=== PATIENT | female | born 1970 | race African-American/Black ===

== ENCOUNTER 2016-10-30 13:39 | Emergency (ER) | payer MEDICAID ==
[2016-10-30 16:06] LABS: BASOPHILS 0.5 % (0.0-2.0); EOSINOPHILS 1.8 % (0-7); HEMATOCRIT 38.8 % (36.0-48.0); HEMOGLOBIN 13.1 g/dL (12-16); LYMPHOCYTES 39.1 % (15-50); MCHC 33.8 g/dL (31.0-37.0); MEAN PLATELET VOLUME 11.5 fL (7.4-10.4); MONOCYTES 9.2 % (2-11); NEUTROPHILS 49.4 % (40-80); PLATELET COUNT 245 10x3/uL (130-400); RBC 4.36 10x6/uL (4.00-5.40); RDW 13.2 % (11.5-14.5); WBC 3.8 10x3/uL (4.8-10.8)
== END 2016-10-30 16:49 | disposition home or self-care (01) ==
LOC: D.ER 13:39
PROVIDERS: Emergency Medicine
DX: M54.2 Cervicalgia (principal); I10 Essential (primary) hypertension

== ENCOUNTER 2017-02-19 02:45 | Inpatient (IN) | payer MEDICAID ==
[~2017-02-19] VITALS: Ht 170.2 cm; Wt 95.3 kg
[2017-02-19 03:42] LABS: BASOPHILS 0.4 % (0-2); EOSINOPHILS 2.3 % (0-7); HEMATOCRIT 38.7 % (36.0-48.0); HEMOGLOBIN 13.6 g/dL (12-16); IMMATURE GRANULOCYTES 0.2 % (0-5); MCH 31.1 pg (26.0-34.0); MCHC 35.1 g/dL (31.0-37.0); MCV 88.4 fL (80.0-100.0); MONOCYTES 8.6 % (2-11); NEUTROPHILS 49.5 % (40-80); PLATELET COUNT 218 10x3/uL (130-400); RBC 4.38 10x6/uL (4.00-5.40); RDW 12.6 % (11.5-14.5); WBC 5.1 10x3/uL (4.8-10.8)
[2017-02-19 03:51] LABS: ANION GAP 9.6 mmol/L (8-16); CALCIUM 9.1 mg/dL (8.5-10.1); CARBON DIOXIDE 26.1 mmol/L (21.0-32.0); CREATININE - SERUM 0.9 mg/dL (0.6-1.3); POTASSIUM - SERUM 3.7 mmol/L (3.5-5.1)
[2017-02-19] MEDS ORDERED: PRINIVIL20 MG PO (06:00)
--- NOTE | 2017-02-19 06:00 | NUR ---
PT RECEIVED TO FLOOR VIA WHEELCHAIR AND IS AMBULATORY. RATES ABDOMINAL PAIN 5/10 AT THIS TIME. COMPLETE ASSESSMENT PER FLOW-SHEET. REFUSED NG PLACEMENT. REFUSED SCD'S. INITIATED IV FLUIDS AND HAND CANDLE DIPPER FOR PAIN CONTROL. PT IS NPO. WILL CONTINUE TO MONITOR.
[2017-02-19] MEDS ORDERED: IBUPROFEN400 MG PO (06:03)
[2017-02-19] MEDS ORDERED: EXCEDRIN CAPLET1 TAB PO (06:03)
--- NOTE | 2017-02-19 07:25 | NUR ---
REPORT RECEIVED FROM BLOCK CLEANER NURSE. CALL LIGHT IN REACH.
[2017-02-19 07:41] VITALS: BP 140/86; BMI 32.9
--- NOTE | 2017-02-19 08:27 | NUR ---
ASSESSMENT COMPLETED. DR. IRWIN IN ROOM TO ASSESS PATIENT AND DISCUSS CT RESULTS. PROTONIX SIVP. REFUSES NGT AND SCDs. CALL LIGHT IN REACH. FAMILY IN ROOM. WILL CONTINUE WITH PLAN OF CARE.
[2017-02-19 08:40] VITALS: BP 149/89
--- NOTE | 2017-02-19 08:48 | NUR ---
TO RADIOLOGY VIA WC WITH GASTROGRAFFIN ENEMA.
--- NOTE | 2017-02-19 10:40 | NUR ---
BACK IN ROOM AT THIS TIME. HEALTH AND SAFETY INSPECTOR AND FLUIDS INFUSING. DAUGHTER IN ROOM. CALL LIGHT IN REACH.
--- NOTE | 2017-02-19 11:20 | NUR ---
CONSENTS FOR COLONOSCOPY SIGNED AND WITNESSED.
[2017-02-19 12:19] VITALS: Ht 170.2 cm; Wt 95.3 kg
[2017-02-19 12:48] VITALS: BP 115/55
--- NOTE | 2017-02-19 13:08 | NUR ---
RESTING QUIETLY IN BED. C/O NEEDED FLUIDS. REMINDED DOCTOR ORDER FOR NO FLUIDS AT THIS TIME. GIVEN WET CLOTH TO WIPE OUT MOUTH AND SHE STATED THAT HELPED SOME. DENIES ABDOMINAL PAIN AT THIS TIME.
--- NOTE | 2017-02-19 13:38 | NUR ---
Patient Name: ALLEN MELTON Admission Status: ER Accout number: [id number] Admission Date: 02-19-2017 : 1970 Admission Diagnosis:UNSPECIFIED ABDOMINAL PAIN Attending: CHERRY Current LOS: 1 Anticipated DC Date: Planned Disposition: Home Primary Insurance: [place] PR[employer] OPTIONS [place] Discharge Planning Comments: CM MET WITH PATIENT AND (HERNAN) TO ASSESS DISCHARGE PLANNING NEEDS. PATIENT LIVES INDEPENDENTLY WITH HER WHO WILL BE THE ONE TO DRIVE HER HOME. PATIENT DENIES ANY USE OF HH ANGENCY OR DME & DOES NOT THINK SHE WILL NEED ANY WHEN SHE GOES HOME. CM WILL CONTINUE TO FOLLOW AND ASSIST NEEDED. PCP: KRIS LOZANO ([facility]) [facility] HERNAN () [phone] Traffic Superintendent: Rubi Null * Is the patient Alert and Oriented? Yes 0 * How many steps to enter\exit or inside your home? 0 0 * PCP KRIS LOZANO- [facility] 0 * Pharmacy [facility] 0 * Preadmission Environment Home with Family 0 * ADLs Independent 0 * Equipment None 0 * List name and contact numbers for known caregivers / representatives who currently or will assist patient after discharge: HERNAN () [phone] 0 * Community resources currently utilized None 0 * Additional services required to return to the preadmission environment? No 0 * Can the patient safely return to the preadmission environment? Yes 0 * Has this patient been hospitalized within the prior 30 days at any hospital? No 0 Grand Total: 0
--- NOTE | 2017-02-19 15:29 | NUR ---
PREOP MEDS ADMINISTERED PER ORDER. AT BEDSIDE. CALL LIGHT IN REACH.
--- NOTE | 2017-02-19 16:05 | NUR ---
TO GI LAB VIA BED.
[2017-02-19 16:13] VITALS: BP 150/93
--- NOTE | 2017-02-19 18:21 | NUR ---
STILL IN GI LAB AT THIS TIME.
--- NOTE | 2017-02-19 18:23 | NUR ---
DECOMPRESSION COLONOSCOPY COMPLETED.
--- NOTE | 2017-02-19 19:00 | NUR ---
BACK TO ROOM AT THIS TIME. FLUIDS AND SENIOR SERVICE AIDE BACK INFUSING. FAMILY IN ROOM. CALL LIGHT IN REACH.
--- NOTE | 2017-02-19 22:49 | NUR ---
REC'D PATIENT RESTING IN BED. ALERT AND ORIENTED X4. NO DISTRESS NOTED. DENIED PAIN AT THIS TIME. INSTRUCTED TO CALL IF NEEDED ANYTHING. VERBALIZED UNDERSTANDING. IS AT BEDSIDE. BED LOW, LOCKED, CALL LIGHT IN REACH.
[2017-02-20] VITALS: BP 139/88
--- NOTE | 2017-02-20 02:50 | NUR ---
RESTING,WITHOUT NEEDS.CALL LIGHT IN REACH
[2017-02-20 03:34] VITALS: BP 142/87
[2017-02-20 06:37] LABS: BASOPHILS 0.3 % (0-2); EOSINOPHILS 1.8 % (0-7); HEMATOCRIT 36.4 % (36.0-48.0); HEMOGLOBIN 12.2 g/dL (12-16); LYMPHOCYTES 37.9 % (15-50); MCHC 33.5 g/dL (31.0-37.0); MCV 89.4 fL (80.0-100.0); MONOCYTES 8.2 % (2-11); NEUTROPHILS 51.8 % (40-80); PLATELET COUNT 189 10x3/uL (130-400); RBC 4.07 10x6/uL (4.00-5.40); RDW 12.9 % (11.5-14.5); WBC 3.9 10x3/uL (4.8-10.8)
[2017-02-20 06:45] LABS: INR 1.01 (0.85-1.17); PROTIME 13.2 SECONDS (11.6-15.0)
[2017-02-20 06:46] LABS: APTT 28.2 SECONDS (22.8-39.4)
[2017-02-20 06:48] LABS: CALC OSMOLALITY 276 mosm/kg (275-300); CALCIUM 8.5 mg/dL (8.5-10.1); CARBON DIOXIDE 28.6 mmol/L (21.0-32.0); CHLORIDE - SERUM 106 mmol/L (98-107); CREATININE - SERUM 0.8 mg/dL (0.6-1.3); GLUCOSE 94 mg/dL (74-106); SODIUM 139 mmol/L (136-145); UREA NITROGEN 10 mg/dL (7-18); eGFR NON AFRICAN AMERICAN 82 mL/min (90-120)
--- NOTE | 2017-02-20 07:10 | NUR ---
PT REC'D FROM MICHAEL RASMUSSEN. RESTING IN BED WITH IN BED WITH HER. COMPLAINING OF SEVERE MANCINI. RATING CURRENT PAIN 10/10. ASKING IF SHE HAS TYLENOL ORDERED. EXPLAINED TO PT THAT SHE DID NOT, BUT I WOULD BPAGE THE DOCTOR TO TRY AND GET HER SOME ORDERED. PT STATES SHE UNDERSTANDS. BOWEL SOUNDS ACTIVE X4 QUADS. NO COMPLAINTS OF ABD PAIN. AAOX4. BED LOW, CALL LIGHT IN REACH, DENIES NEEDS. CPOC.
--- NOTE | 2017-02-20 07:39 | NUR ---
DR. IRWIN PAGED DUE TO PT COMPLAINING OF SEVERE HEADACHE AND WANTING HER PHONE COUNSELOR PUMP CHANGED TO SOMETHING INSTEAD OF DILAUDID BECAUSE PT STATES, "I THINK THIS IS WHAT IS MAKING MY HEAD HURT SO BAD."
[2017-02-20 08:11] VITALS: BP 119/79
[2017-02-20] MEDS ORDERED: MIRALAX17 GM PO (08:30)
--- NOTE | 2017-02-20 10:50 | NUR ---
DISCHARGE INSTRUCTIONS DISCUSSED AT THIS TIME. NO QUESTIONS OR CONCERNS VOICED. PIV TO R HAND DC'D WITH CATHETER INTACT. ESCORTED OUT VIA WC.
== END 2017-02-20 10:59 | disposition home or self-care (01) | DRG 346 ==
LOC: D.ER 02:45 → D.MS 05:30
PROVIDERS: Family Medicine; Internal Medicine Gastroenterology; ADMIT Surgery
PROC: 0D9E8ZZ Drainage of Large Intestine, Via Natural or Artificial Opening Endoscopic (ICD-10-PCS; principal; 2017-02-19 16:30)
DX: K59.39 Other megacolon (principal); K59.00 Constipation, unspecified

== ENCOUNTER 2017-03-29 17:03 | Emergency (ER) | payer MEDICAID ==
[2017-02-19 12:19] VITALS: BMI 32.9
[~2017-03-29 17:03] MED LIST: EXCEDRIN CAPLET1 TAB PO; IBUPROFEN400 MG PO; MIRALAX17 GM PO; PRINIVIL20 MG PO
[2017-03-29 18:31] LABS: COLOR DK YELLOW (YELLOW)
[2017-03-29 18:32] LABS: APPEARANCE CLOUDY (CLEAR); BILIRUBIN NEGATIVE (NEGATIVE); GLUCOSE NEGATIVE (NEGATIVE); KETONE NEGATIVE (NEGATIVE); LEUKOCYTE ESTERASE 1+ (NEGATIVE); NITRITE NEGATIVE (NEGATIVE); PROTEIN TRACE mg/dL (NEGATIVE); UROBILINOGEN NORMAL (NORMAL)
[2017-03-29 18:35] LABS: EPITHELIAL CELLS 0-5 /hpf (0-5); WHITE CELLS - URINE >50 /hpf (0-5)
[2017-03-29 18:36] LABS: BACTERIA FEW /hpf (NONE SEEN)
== END 2017-03-29 19:28 | disposition home or self-care (01) ==
LOC: D.ER 17:03
PROVIDERS: Emergency Medicine
DX: N39.0 Urinary tract infection, site not specified (principal); I10 Essential (primary) hypertension

== ENCOUNTER → 2017-04-12 08:18 | Outpatient (CLI) | payer MEDICAID ==
[2017-02-19 12:19] VITALS: BMI 32.9
== END | disposition home or self-care (01) ==
LOC: D.RAD 08:18
DX: Z87.19 Personal history of other diseases of the digestive system (principal); R10.9 Unspecified abdominal pain; K59.00 Constipation, unspecified; Z12.11 Encounter for screening for malignant neoplasm of colon

== ENCOUNTER 2017-06-09 16:30 | Inpatient (IN) | payer MEDICAID ==
[~2017-06-09] VITALS: Ht 170.2 cm; Wt 106.4 kg
[2017-06-09 17:28] LABS: BASOPHILS 0.2 % (0-2); HEMOGLOBIN 12.9 g/dL (12-16); IMMATURE GRANULOCYTES 0.1 % (0-5); LYMPHOCYTES 16.9 % (15-50); MCH 30.6 pg (26.0-34.0); MCHC 33.9 g/dL (31.0-37.0); MEAN PLATELET VOLUME 11.2 fL (7.4-10.4); MONOCYTES 8.7 % (2-11); NEUTROPHILS 72.1 % (40-80); RBC 4.22 10x6/uL (4.00-5.40); RDW 13.3 % (11.5-14.5); WBC 8.6 10x3/uL (4.8-10.8)
[2017-06-09 17:36] LABS: PLATELET COUNT 280 10x3/uL (130-400)
[2017-06-09 17:53] LABS: ALBUMIN 3.3 g/dL (3.4-5.0); ANION GAP 15.3 mmol/L (8-16); BILIRUBIN - TOTAL 0.31 mg/dL (0.2-1.3); CARBON DIOXIDE 22.6 mmol/L (21.0-32.0); POTASSIUM - SERUM 3.9 mmol/L (3.5-5.1); PROTEIN - SERUM 7.7 g/dL (6.4-8.2)
--- NOTE | 2017-06-09 23:17 | NUR ---
REC'D TO ROOM 2216 FROM ER DEPT PER STRETCHER A 47 Y/O W/FE PER SERVICES DR. TRAMMELL WITH DX VOLVULUS. RECTAL TUBE IN PLACE CONNECTED TO MAJANO BAG. AND DRAINING PINK COLORED FLUID. IV PATENT LEFT HAND SALINE LOCKED. FAMILY MEMBERS AT BEDSIDE.
[2017-06-09 23:44] VITALS: BP 104/59; BMI 32.9
--- NOTE | 2017-06-10 00:42 | NUR ---
IV FLUIDS OF NS HUNG PER ORDERS AT A RATE OF 100CC'S/HR. CABLE ENGINEER OUTSIDE PLANT OF DILAUDID STARTED WITH ETTINGS AT 0.2MG Q10MIN NO L/O PER MD'S ORDERS. INSTRUCTED PT AND HER SPOUSE OF OPERATION OF CABLE ENGINEER OUTSIDE PLANT MACHINE.
--- NOTE | 2017-06-10 01:30 | NUR ---
ASSISTED PATIENT TO TURN TO RT SIDE. SR UP X2 CALL LIGHT WITHIN REACH.
[2017-06-10 04:00] VITALS: BP 136/60
--- NOTE | 2017-06-10 04:06 | NUR ---
RESTING QUIETLY DENIES NEEDS SPOUSE AT BEDSIDE.
[2017-06-10 05:10] LABS: BASOPHILS 0.1 % (0-2); EOSINOPHILS 0.8 % (0-7); HEMATOCRIT 34.9 % (36.0-48.0); HEMOGLOBIN 11.5 g/dL (12-16); IMMATURE GRANULOCYTES 0.1 % (0-5); LYMPHOCYTES 12.7 % (15-50); MCH 30.3 pg (26.0-34.0); MCV 91.8 fL (80.0-100.0); MEAN PLATELET VOLUME 10.9 fL (7.4-10.4); MONOCYTES 7.5 % (2-11); NEUTROPHILS 78.8 % (40-80); PLATELET COUNT 257 10x3/uL (130-400); RDW 13.6 % (11.5-14.5); WBC 8.6 10x3/uL (4.8-10.8)
[2017-06-10 05:35] LABS: ALBUMIN 2.7 g/dL (3.4-5.0); ANION GAP 10.7 mmol/L (8-16); BILIRUBIN - TOTAL 0.3 mg/dL (0.2-1.3); CALCIUM 8.4 mg/dL (8.5-10.1); CARBON DIOXIDE 25.2 mmol/L (21.0-32.0); CREATININE - SERUM 0.9 mg/dL (0.6-1.3); MAGNESIUM - SERUM 1.9 mg/dL (1.8-2.4); PHOSPHOROUS 3.2 mg/dL (2.5-4.9); POTASSIUM - SERUM 3.9 mmol/L (3.5-5.1); PROTEIN - SERUM 6.6 g/dL (6.4-8.2)
--- NOTE | 2017-06-10 07:30 | NUR ---
ASSESSMENT PER FLOW SHEET.PT WITHOUT DISTRESS.STATES PAIN 9/10 IN RECTAL AREA.TUBE COMING FROM RECTUM HAS SMALL AMOUNT OF LIGHT STRAW PINK TINTED DRAINAGE IN COLLECTION BAG.INSTRUCTED OFFICE INSPECTOR USE FOR PAIN CONTROL.PT STATES SHE HS ONLY USED IT A FEW TIMES.FAMILY AT BEDSIDE.CALL LIGHT IN REACH
[2017-06-10 08:13] VITALS: BP 109/67
[2017-06-10 11:48] VITALS: BP 126/78
--- NOTE | 2017-06-10 14:49 | NUR ---
SLEEP[ING ON LEFT SIDE,WITHOUT DISTRESS.
[2017-06-10 16:56] VITALS: BP 130/74
--- NOTE | 2017-06-10 18:12 | NUR ---
HAS BEEN UP TO BATHROOM.PAIN BETTER CONTROLLED WITH MEDS ORDERED PER SEP. NO OUTPUT FROM TUBE IN RECTUM. REMAINS WITHOUT NAUSEA.CONT PLAN OF CARE
[2017-06-10 20:00] VITALS: BP 112/84
[2017-06-11] VITALS: BP 123/62
[2017-06-11 04:00] VITALS: BP 141/103
[2017-06-11 07:54] VITALS: BP 123/87
[2017-06-11 12:00] VITALS: BP 120/90
[2017-06-11 12:11] VITALS: BMI 32.9
[2017-06-11 15:27] VITALS: BP 120/85
[2017-06-11 20:00] VITALS: BP 133/74
--- NOTE | 2017-06-11 20:30 | NUR ---
PT C/O LEFT HAND IV TENDER AND BURNING. REMOVED IV CATHETER INTACT. RESITED TO RIGHT FOREARM 22 G 1ST ATTEMPT. GAVE DEMEROL FOR PAIN. ASSESSMENT COMPELTE PER FLOW-SHEET. NO OTHER NEEDS. WILL CONTINUE TO MONITOR.
[2017-06-12] VITALS: BP 145/85
[2017-06-12 04:00] VITALS: BP 139/92
--- NOTE | 2017-06-12 08:00 | NUR ---
ASSESSMENT PER FLOW SHEET.PT WITHOUT DISTRESS.DENIES NEEDS AT PRESENT.CALL LIGHT IN REACH
[2017-06-12 08:50] VITALS: BP 141/95
[2017-06-12 12:55] VITALS: BP 130/86
--- NOTE | 2017-06-12 15:11 | NUR ---
HAS BEEN UP TO BATHROOM AND HAD SOME LOOSE STOOLS.STOOL LEAKING AROUND TUBE GOING INTO RECTUM.PT CLEANED AND TUBED FLUSHED PER MAMIE SOUSA RN PER .MONITOR FOR NEEDS
[2017-06-12 16:50] VITALS: BP 163/103
--- NOTE | 2017-06-12 16:52 | NUR ---
PAGE TO DR. ALVARO AMATO. BP 163/102
--- NOTE | 2017-06-12 18:19 | NUR ---
REMAINS WITHOUT DISTRESS.DENIES NEEDS AT PRESENT.CALL LIGHT IN REACH
[2017-06-12 20:00] VITALS: BP 148/101
[2017-06-13] VITALS: BP 146/84
[2017-06-13 04:00] VITALS: BP 130/83
--- NOTE | 2017-06-13 08:00 | NUR ---
ASSESSMENT PER FLOW SHEET.PT WITHOUT DISTRESS.CALL LIGHT IN REACH
[2017-06-13 08:42] VITALS: BP 155/81
--- NOTE | 2017-06-13 15:17 | NUR ---
LYING IN BED ON LEFT SIDE.DENIES NEEDS AT PRESENT.MONITOR
--- NOTE | 2017-06-13 17:13 | NUR ---
DENIES PAIN AT PRESENT,WITHOUT NAUSEA.WITHOUT CHANGE FROM INITIAL SHIFT ASSESSMENT.CONT PLAN OF CARE
--- NOTE | 2017-06-13 19:45 | NUR ---
PT RESTLESS, PULLING COVERS AND GOWN. CONFUSED AND DISORIENTED, HEARING AND SEEING PEOPLE AND THINGS THAT ARE NOT THERE. PT APPEARS TO BE TIRING. INCONTINENT OF URINE. CHANGED BED LINEN AND GOWN WITH SOME RESISTANCE. ASSESSED PAIN. PT SAID YES. ASKED PT IS SHE COULD TAKE A PAIN PILL. PT STATED "NO, IT'S NOT THAT BAD YET." FAMILY WENT HOME FOR THE NIGHT. WILL CLOSELY MONITOR. BED ALARMS ON. CALL LIGHT IN REACH.
[2017-06-13 20:00] VITALS: BP 166/95
[2017-06-14] VITALS: BP 159/90
[2017-06-14 04:00] VITALS: BP 148/90
--- NOTE | 2017-06-14 07:04 | NUR ---
REPORT RECEIVED FROM FLEXOGRAPHIC PRESS SET UP OPERATOR NURSE. CALL LIGHT IN REACH.
[2017-06-14 08:29] VITALS: BP 154/115
--- NOTE | 2017-06-14 09:12 | NUR ---
Patient Name: ALLEN CORTES Admission Status: ER Accout number: [id number] Admission Date: 06-09-2017 : 1970 Admission Diagnosis:VOLVULUS Attending: HERNAN TRAMMELL Current LOS: 5 Anticipated DC Date: Planned Disposition: Home Primary Insurance: [place] Discharge Planning Comments: CM met with patient to assess discharge planning needs. Patient lives independently with her , where she plans to return. Her mother Ariella Davey will be the one to drive her home at discharge. Patient has 8 steps to enter in her home. She does not have any DME or HH services at this time. CM will continue to follow and assist with discharge planning needs. PCP: Leela Galan ([facility]) [facility] Hernan Cortes () [phone] Manager Transfer: Rubi Null * Is the patient Alert and Oriented? Yes 0 * How many steps to enter\exit or inside your home? 8 0 * PCP Leela Galan 0 * Pharmacy [facility] 0 * Preadmission Environment Home with Family 0 * ADLs Independent 0 * Equipment None 0 * List name and contact numbers for known caregivers / representatives who currently or will assist patient after discharge: Hernan Cortes () [phone] 0 * Community resources currently utilized None 0 * Additional services required to return to the preadmission environment? No 0 * Can the patient safely return to the preadmission environment? Yes 0 * Has this patient been hospitalized within the prior 30 days at any hospital? No 0 Grand Total: 0
--- NOTE | 2017-06-14 09:55 | NUR ---
ASSESSMENT COMPLETED. STATES A HEADACHE OF 10. OFFERED DEMEROL OR NORCO BUT PATIENT REFUSED BOTH AT THIS TIME. TYLENOL IV ORDERED AND ADMINISTERED. DAUGHTER IN ROOM. CALL LIGHT IN REACH. WILL CONTINUE WITH PLAN OF CARE.
--- NOTE | 2017-06-14 10:49 | NUR ---
HAS STARTED CRYING. STATES TYLENOL DID NOT HELP PAIN AT ALL. NOW WANTS TO TRY DEMEROL SO ADMINISTERED IVP. DAUGHTER IN ROOM. CALL LIGHT IN REACH.
--- NOTE | 2017-06-14 11:06 | NUR ---
SCDs APPLIED TO BLE PER FAMILY SOCIOLOGIST.
--- NOTE | 2017-06-14 11:46 | NUR ---
UP TO BR PER SELF. DENIES NEEDS. CONTINUES TO C/O HEADACHE. GIVEN WARM PACKS FOR NECK. WILL MONITOR.
[2017-06-14 12:05] VITALS: BP 150/93
--- NOTE | 2017-06-14 13:02 | NUR ---
PREOP MEDS ADMINISTERED WITH SIP OF WATER. DAUGHTER AT BEDSIDE. CALL LIGHT IN REACH.
--- NOTE | 2017-06-14 13:26 | NUR ---
NUTRITION F/U PT NPO FOR SURGERY. WILL MONITOR DIET ADVANCEMENT, PO INTAKE. RD FOLLOWING
--- NOTE | 2017-06-14 15:50 | NUR ---
DR. TRAMMELL IN ROOM TO SPEAK WITH PATIENT.
[2017-06-14 16:14] VITALS: BP 154/91
[2017-06-14 16:16] LABS: BASOPHILS 0.3 % (0-2); EOSINOPHILS 3.1 % (0-7); HEMATOCRIT 37.6 % (36.0-48.0); HEMOGLOBIN 12.9 g/dL (12-16); IMMATURE GRANULOCYTES 0.3 % (0-5); LYMPHOCYTES 28.5 % (15-50); MCH 30.5 pg (26.0-34.0); MCHC 34.3 g/dL (31.0-37.0); MCV 88.9 fL (80.0-100.0); MEAN PLATELET VOLUME 10.2 fL (7.4-10.4); MONOCYTES 9.5 % (2-11); NEUTROPHILS 58.3 % (40-80); RBC 4.23 10x6/uL (4.00-5.40); RDW 12.8 % (11.5-14.5); WBC 3.9 10x3/uL (4.8-10.8)
--- NOTE | 2017-06-14 16:21 | NUR ---
HS DOSE OF LISINOPRIL 20 MG PO. IV TYLENOL ADMINISTERED. CALL LIGHT IN REACH.
[2017-06-14 16:30] LABS: PLATELET COUNT 326 10x3/uL (130-400)
[2017-06-14 16:47] LABS: ALBUMIN 3.1 g/dL (3.4-5.0); ALKALINE PHOSPHATASE 55 U/L (46-116); ALT (SGPT) 30 U/L (10-68); BILIRUBIN - TOTAL 0.21 mg/dL (0.2-1.3); CALC OSMOLALITY 272 mosm/kg (275-300); CALCIUM 9.2 mg/dL (8.5-10.1); CHLORIDE - SERUM 102 mmol/L (98-107); CREATININE - SERUM 0.8 mg/dL (0.6-1.3); GLUCOSE 92 mg/dL (74-106); POTASSIUM - SERUM 3.7 mmol/L (3.5-5.1); PROTEIN - SERUM 6.9 g/dL (6.4-8.2); SODIUM 138 mmol/L (136-145); UREA NITROGEN 3 mg/dL (7-18); eGFR NON AFRICAN AMERICAN 82 mL/min (90-120)
--- NOTE | 2017-06-14 18:01 | NUR ---
NO CHANGES IN INITIAL ASSESSMENT. CALL LIGHT IN REACH. WANTS SCDs OFF AT THIS TIME. WILL CONTINUE WITH PLAN OF CARE.
--- NOTE | 2017-06-14 20:00 | NUR ---
ASSESSMENT PER FLOWSHEET. NPO FOR SURGERY FAMILY MEMBERS AT BEDSIDE. IV PATENT RT WRIST OF NS AT 100CC'S/HR. SITE CLEAR. RECTAL TUBE CONNECTED TO MAJANO BAG IN PLACE. UP AD PAOLO TO BATHROOM VOIDS WELL.
--- NOTE | 2017-06-14 20:30 | NUR ---
TO SURGERY PER BED SR UP X2 FAMILY AT BEDSIDE.
--- NOTE | 2017-06-14 21:55 | NUR ---
2104 EPIDURAL PLACED BY ANESTHESIA, JERAMIE PABLO. AFTER BEING PUT TO SLEEP, DR TRAMMELL REMOVE RECTAL TUBE THAT WAS IN PLACE, [place].
--- NOTE | 2017-06-14 23:34 | NUR ---
RE'D TO ROOM 2216 FROM PACU POST OP OPEN HALS COLECTOMY AND APPENDECTOMY. VITAL SIGNS MONITORED. PT HAS EPIDURAL OF FENTYL INFUSING AT 8CC'S/HR CONTINUOUSLY. MAJANO CATHETER IN PLACE AND DRAINING YELLOW URINE. O2 ON 3L/M PER NC. O2 SAT=98%.HOB UP 30 DEGREES.IV PATENT RT WRIST OF NS AT 100CC'S/HR. DRESSING TO LOWER TRANSVERSE ABDOMEN C/D/I.
[2017-06-14 23:44] VITALS: BP 177/75
[2017-06-15] VITALS (15 sets, daily range): BP systolic 84–137; BP diastolic 43–86
--- NOTE | 2017-06-15 00:30 | NUR ---
CONTINUE TO MONITOR VS AND O2 SATS. RESTING QUIETLY DENIES NEEDS.
--- NOTE | 2017-06-15 01:28 | NUR ---
EYES CLOSED RESPONDS EASILY TO VERBAL COMMAND.
--- NOTE | 2017-06-15 07:50 | NUR ---
REPORT RECEIVED FROM KIP TREVIÑO.
--- NOTE | 2017-06-15 08:28 | NUR ---
ASSESSMENT COMPLETED. NPO. REFUSES SCDs. CALL LIGHT IN REACH. MOTHER IN ROOM. WILL CONTINUE WITH PLAN OF CARE.
--- NOTE | 2017-06-15 10:59 | NUR ---
PEPCID WITH SIP OF WATER. ICE CHIPS GIVEN TO PATIENT. FAMILY IN ROOM. CALL LIGHT IN REACH.
--- NOTE | 2017-06-15 11:15 | NUR ---
PATIENT IN BED WITH IV INTACT. NO COMPLAINTS OR SIGNS OF DISTRESS. CALL LIGHT WITHIN REACH.
--- NOTE | 2017-06-15 12:34 | NUR ---
REFUSES TO TURN IN BED.
--- NOTE | 2017-06-15 13:15 | NUR ---
INCONTINENT OF LARGE STOOL. PARTIAL BED BATH GIVEN AND LINENS CHANGED. STILL REFUSES TO TURN. DAUGHTER IN ROOM. CALL LIGHT IN REACH.
--- NOTE | 2017-06-15 14:27 | NUR ---
FLUID IN EPIDURAL IS GETTING LOW. DR. ZACHARY JUDD.
--- NOTE | 2017-06-15 14:27 | NUR ---
EPIDURAL FLUID IS LOW. DR. SHARMA PAGED TO NOTIFY HIM.
--- NOTE | 2017-06-15 15:43 | OP ---
PATIENT NAME: ALLEN MELTON MEDICAL RECORD: [id number] :[birth year] LOCATION:[facility] ADMISSION DATE:06/09/17 SURGEON: HERNAN TRAMMELL MD DATE OF OPERATION: 06/14/2017 PREOPERATIVE DIAGNOSIS: Recurrent volvulus of the sigmoid colon. POSTOPERATIVE DIAGNOSIS: Recurrent volvulus of the sigmoid colon. PROCEDURES: 1. Open sigmoid colectomy. 2. Incidental appendectomy. SURGEON: Hernan Trammell MD FISHER LOBSTER: None. BLOOD LOSS: Minimal. ANESTHESIA: General. COMPLICATIONS: None. The indication for the appendectomy was to avoid diagnostic confusion in the future should the patient have a persistence or recurrence of abdominal pain. The risks, possible complications and alternatives to the procedure were explained to the patient. She elected to proceed. OPERATIVE COURSE: The patient was conveyed to the operating room electively on 06/14/2017. General anesthesia was induced by the anesthesia staff. The abdomen and genitals were sterilely prepped and draped. A transverse Pfannenstiel type of incision was accomplished 3 cm cephalad to the pubic symphysis in a pannicular crease. Sharp dissection was carried down through skin and subcutaneous tissue as well as Bernadine fascia. The anterior fascia was incised along the direction of its fibers. Subfascial flaps were created in cephalad and caudad directions. The peritoneal cavity was entered sharply. An Jose Luis retractor was placed. I mobilized the cecum. A window was created in the mesoappendix. I stapled across the tip of the appendix with a MAGAN-75 stapler. I then took down the mesoappendix utilizing the EnSeal device. The appendix was sent as a single specimen. I then mobilized the sigmoid colon, which was very redundant. I divided the rectosigmoid junction by creating a window in the mesentery. I stapled across here with a MAGAN-75 stapler. I chose the proximal extent of my resection to be the junction of descending and sigmoid colons. I stapled across here with a MAGAN-75 stapler. The interposed mesentery was taken down with the EnSeal device. The specimen was sent to pathology. The descending colon and rectum were placed in apposition side by side. A small colotomy and small proctotomy were performed. Anvils of the MAGAN-75 stapler were advanced and fired. The resulting colorectal defect was closed with a single OPERATIVE REPORT [id number] ALLEN MELTON firing of the TA 60 stapler. There was no bleeding. I ran a portion of the small bowel and there appeared to have been no evidence of small bowel injury. I irrigated and aspirated. Still no evidence of bleeding. The rectus muscles were approximated in the midline with multiple interrupted horizontal mattress #1 Vicryls. The anterior fascia was closed with running #1 Vicryls. Bernadine's fascia was approximated with interrupted 3-0 Vicryls. The subdermis was approximated with interrupted 3-0 Vicryls. The skin was approximated with a running intracuticular 4-0 Vicryl. A sterile dressing was applied. The patient was then extubated and conveyed to the post-anesthesia care unit where she was in stable condition. TRANSINT:[id number] Voice Confirmation ID: [id number] DOCUMENT ID: [id number] HERNAN TRAMMELL MD at 1543 CC: CONNOR YOUSIF MD [id number] DICTATION DATE: 06/15/17 1018 CORK INSULATION SETTER: 06/15/17 1340 ADM IN [facility] [address] [place] [address]
--- NOTE | 2017-06-15 15:43 | HP ---
PATIENT: ALLEN MELTON MEDICAL RECORD: [id number] ACCOUNT: [id number] LOCATION:D[facility] : 74 ADMISSION DATE: 06/09/17 HISTORY AND PHYSICAL EXAMINATION This is a history and physical addendum. CHIEF COMPLAINT: Pain. HISTORY OF PRESENT ILLNESS: The patient presents to the Emergency Room with what appears to be a sigmoid volvulus. The patient underwent a CT scan. I personally reviewed the CT images. I have personally reviewed the CT report. It discussed some twisting of the mesentery. I think this is due to a volvulus. I have asked that the interventional radiologist come in and see if we can detorse the volvulus. If I had to take the patient to the operating room and resect the sigmoid colon, this would very likely result in a colostomy. My preference would be to detorse the sigmoid colon to bowel prep the patient over the weekend and then perform a sigmoid colectomy hopefully laparoscopically on Wednesday. Palpation aggravates. Nothing alleviates. Symptoms are mild. I first saw her and examined her in the CT scanner. The entire physical examination was performed in the presence of a female nurse. Palpation aggravates. Nothing alleviates. The symptoms are mild in intensity. They are not worsening. There is no peritonitis locally or diffuse peritonitis. For the typed portion of the history and physical, please see the chart. This would include past medical and surgical history, allergies, current medications, social history as well as family history. These are recurrent episodes. The patient had a volvulus in the past which has been detorsed through the use of a Gastrografin enema. REVIEW OF SYSTEMS: No ear pain, no blurred vision, no chest pain, no shortness of breath. No flank pain, no altered mental status, no polyuria, no anemia. PHYSICAL EXAMINATION: GENERAL: The patient does appear acutely ill, does not appear chronically ill. VITAL SIGNS: Reviewed. The entire physical examination was performed with the presence of a female nurse. EARS: External ears appear normal. EYES: Extraocular movements are intact. NECK: Trachea is midline. CHEST: No intercostal retractions. PULMONARY: Nonlabored, no stridor. ABDOMEN: Tenderness in the left upper quadrant. PSYCHIATRIC: Normal affect. NEUROLOGIC: Nonfocal, no lethargy. The patient answers questions appropriately, moves all extremities well. BACK: No thoracic kyphosis. LYMPHATICS: No lymphangitic streaking of the exposed extremities. IMPRESSION: Probable volvulus. PLAN: As described above. HISTORY AND PHYSICAL [id number] PRAVIN MELTONL TRANSINT:[id number] Voice Confirmation ID: [id number] DOCUMENT ID: [id number] HERNAN TRAMMELL MD at 1543 CC: CEASAR EAGLE MD, KRIS WASHBURN and CORNELIA GREENE MD [id number] DICTATION DATE: 06/09/171958 PAN WASHER: 06/09/172130 ADM IN [facility] [address] [place] [address]
--- NOTE | 2017-06-15 15:43 | OP ---
PATIENT NAME: ALLEN MELTON MEDICAL RECORD: [id number] :74 LOCATION:D[facility] ADMISSION DATE:06/09/17 SURGEON: GOKUL TRAMMELL MD DATE OF OPERATION: 06/09/2017 PREOPERATIVE DIAGNOSIS: Sigmoid volvulus. POSTOPERATIVE DIAGNOSES: Sigmoid volvulus. PROCEDURE: Rigid sigmoidoscopy with decompression of sigmoid volvulus. SURGEON: Gokul Trammell MD CINDER BLOCK MASON: None. BLOOD LOSS: Minimal. ANESTHESIA: IV analgesia as well as an IV benzodiazepine. The patient failed a Gastrografin enema to try to detorse the sigmoid volvulus. The patient was then conveyed back to the Emergency Room. The risks, possible complications and alternatives of procedure were explained to the patient. She elects to proceed. OPERATIVE COURSE: The patient was placed in the Thomas position. IV analgesia as well as IV benzodiazepine were given. I lubricated the anus with K-Y jelly and with viscous lidocaine. I advanced a rigid sigmoidoscope. I advanced into the "bird's beak" where the sigmoid colon was twisted. I then advanced a 28-[place] African chest tube through this twisted area. There was a prompt flow of 1.8 liters of what appeared to be Gastrografin as well as some fecal material. I then sutured the chest tube in place to the surrounding anoderm after anesthetizing it with the local anesthetic. I sutured the chest tube to the anoderm with a 2-0 silk. This hopefully will keep the bowel untorsed, so that we can bowel prep the patient over the weekend and hopefully perform a sigmoid colectomy on Wednesday as this is at least the patient's fourth episode of sigmoid volvulus. I think it is time to go ahead and remove the sigmoid colon which continues to develop a volvulus. TRANSINT:[id number] Voice Confirmation ID: [id number] DOCUMENT ID: [id number] GOKUL TRAMMELL MD at 1543 CC: [id number] DICTATION DATE: 06/10/17 1018 RUG DYER: 06/10/17 1045 ADM IN [facility] [id number] [place] [address]
--- NOTE | 2017-06-15 15:51 | NUR ---
EPIDURAL IS NOW EMPTY. SPOKE WITH DR. SHARMA.
--- NOTE | 2017-06-15 15:54 | NUR ---
DR. SHARMA IN ROOM TO REPLACE EPIDURAL FLUID. TYLENOL IV PER ORDER. STILL REFUSING TO TURN.
--- NOTE | 2017-06-15 16:15 | NUR ---
BP 82/48 AND ONLY 200 CC OUT OF MAJANO CATHETER. DR. VALERI JUDD.
--- NOTE | 2017-06-15 17:51 | NUR ---
SPOKE WITH DR. SHARMA ABOUT BP AND MAJANO OUTPUT. NEW ORDER FOR 500 CC NS IV BOLUS.
--- NOTE | 2017-06-15 18:18 | NUR ---
NO CHANGES IN INITIAL ASSESSMENT. REFUSES SCDs. CALL LIGHT IN REACH. WILL CONTINUE WITH PLAN OF CARE.
--- NOTE | 2017-06-15 20:00 | NUR ---
ASSESSMENT PER FLOWSHEET. IV PATENT RT ARM OF NS AT 100CC'S/HR SITE CLEAR EPIDURAL IN PLACE WITH GOOD PAIN CONTROL MONITORING O2 SATS. RUNNING 98-100% ON 2L/M PER NC. MAJANO TO BEDSIDE DRAINAGE WITH YELLOW URINE. DRESSING TO LOWER ABDOMINAL AREA C/D/I. SPOUSE IN ROOM
--- NOTE | 2017-06-15 21:00 | NUR ---
MEDS GIVEN PER SEP. HELD B/P MED =.
--- NOTE | 2017-06-16 | NUR ---
EYES CLOSED RESPIRATIONS WITH EASE AND UNLABORED.
--- NOTE | 2017-06-16 02:00 | NUR ---
RESTING QUIETLY DENIES NEEDS.
--- NOTE | 2017-06-16 03:30 | NUR ---
C/O NAUSEA ZOFRAN 4MG IVP GIVEN FOR RELIEF.
--- NOTE | 2017-06-16 06:00 | NUR ---
EYES CLOSED RESPIRATIONS WITH EASE AND UNLABORED.
--- NOTE | 2017-06-16 08:00 | NUR ---
ASSESSMENT PER FLOW SHEET.PT WITHOUT DISTRESS.SATS 99% ON 2 LITERS OF 02 PER NASAL CANULA. EPIDURAL DRESSING CDI.PT STATES PAIN CONTROLLED.TRANSVERSE INCISION TO LOWER ABD WITH DRESSING CDI. POSITIONED ON RIGHT SIDE.SCDS IN PLACE.MAJANO HAS YELLOW URINE IN COLLECTION BAG.CALL LIGHT IN REACH
[2017-06-16 08:44] VITALS: BP 95/59
--- NOTE | 2017-06-16 12:00 | NUR ---
STILL HAVING NAUSEA. STATES HAVING SOME PAIN.INSTRUCTED EPIDURAL BUTTON FOR PAIN CONTROLL.FAMILY AT BEDSIDE
[2017-06-16 12:09] VITALS: BP 102/56
--- NOTE | 2017-06-16 13:52 | NUR ---
STILL HAVING NAUSEA,MEDS ORDERED PER SEP.
[2017-06-16 16:16] VITALS: BP 110/58
--- NOTE | 2017-06-16 20:00 | NUR ---
ASSESSMENT SPER FLOWSHEET. INCISION LOWER ABDOMINAL AREA DRESSING C/D/I. IV PATENT RT WRIST OF NS AT 100CC'S/HR. SITE CLEAR. LITHOGRAPHED PLATE INSPECTOR OF DILAUDID IN USE WITH SETTINGS AT 0.2MG Q10 MD WITH 4MG Q4H L/O. MAJANO TO BEDSIDE DRAINAGE WITH YELLOW URINE. BS +.
--- NOTE | 2017-06-16 21:00 | NUR ---
MEDS GIVEN PER SEP. HELD B/P MED DUE TO LOW BLOOD PRESSURE OF 101/SYSTOLIC. SPOUSE IN ROOM AT BEDSIDE.
[2017-06-16 21:51] VITALS: BP 101/71
[2017-06-16 23:45] VITALS: BP 111/71
--- NOTE | 2017-06-17 | NUR ---
EYES CLOSED RESPIRATIONS WITH EASE AND UNLABORED.
--- NOTE | 2017-06-17 00:49 | NUR ---
AWAKE ALERT VISITING WITH FAMILY MEMBERS.
--- NOTE | 2017-06-17 03:00 | NUR ---
EYES CLOSED RESPIRATIONS WITH EASE AND UNLABORED.
[2017-06-17 04:00] VITALS: BP 128/70
--- NOTE | 2017-06-17 06:00 | NUR ---
NO CHANGES IN ASSESSMENT.
--- NOTE | 2017-06-17 08:00 | NUR ---
ASSESSMENT PER FLOW SHEET.PT WITHOUT DISTRESS.TRANSVERSE ABDOMINAL INCISION DRESSING CLEAN AND DRY.SHE IS WITHOUT EMESIS THIS AM. SHE STATES HER PAIN GOT BAD LAST NIGHT WHEN SHE FELL ASLEEP AND WASNT PUSHING LITIGATION PARTNER BUTTON.LITIGATION PARTNER USI INSTRUCTED.IS TEACHING WITH PT DEMONSTRATION.MONITOR FOR NEEDS.
[2017-06-17 08:37] VITALS: BP 134/68
[2017-06-17 12:56] VITALS: BP 109/56
--- NOTE | 2017-06-17 13:34 | NUR ---
NUTRITION F/U PT ON REG DIET, NOW BACK TO NPO. MAY BENEFIT FROM PROCALAMINE AND INTRALIPIDS IF UNABLE TO RESUME PO IN [address] FOLLOWING
--- NOTE | 2017-06-17 13:40 | NUR ---
PT HAS BEEN UP AND AMBULATED IN [place] WITH PT.PAIN CONTROLLED WITH HOSPITAL STAFF PHARMACIST.MAJANO DCD WITH CATH TIP INTACT,200CC OF YELLOW URINE IN BAG.PT REPORTS HAVING SMALL BM.PT IS NOW SITTING UP IN CHAIR.MONITOR
--- NOTE | 2017-06-17 16:32 | NUR ---
REMAINS WITHOUT NEEDS,WITHOUT CHNAGE.CONT PLAN OF CARE
[2017-06-17 16:48] VITALS: BP 118/68
--- NOTE | 2017-06-17 20:00 | NUR ---
ASSESSMENT SPER FLOWSHEET. UP TO BSC VOIDS FREELY. ASSISTED BACK TO BED. SR UP X2 CALL LIGHT WITHIN REACH. TRANSVERSE LOWER ABDOMINAL INCISION C/D/I. ABDOMEN SOFT WITH HYPOACTIVE BS. IV PATENT RT WRIST OF NS AT 100CC'S/HR SITE CLEAR. APPLICATIONS PROGRAMMER OF DILAUDID IN USE WITH SETTINGS AT 0.2MG Q10MIN W/NO L/O. SCD'S OF AT THIS TIME. SPOUSE PLACING LOTION TO 'S LEGS.
[2017-06-17 20:50] VITALS: BP 138/79
--- NOTE | 2017-06-17 21:00 | NUR ---
MEDS GIVEN PER MAR. FAMILY MEMBERS AT BEDSIDE.
--- NOTE | 2017-06-17 21:45 | NUR ---
UP WITH HELP TO BEDSIDE COMMODE. VOIDS WELL ASSISTED BACK TO BED SR UP X2 CALL LIGHT WITHIN REACH.
[2017-06-18] VITALS: BP 127/62
--- NOTE | 2017-06-18 00:17 | NUR ---
REMAINS AWAKE VISITING WITH FAMILY MEMBERS.
--- NOTE | 2017-06-18 00:52 | NUR ---
UP TO BSC VOIDED ASSISTED BACK TO BED REPOSITIONED IN BED SR UP X2 CALL LIGHT WITHIN REACH.
--- NOTE | 2017-06-18 02:50 | NUR ---
AWAKE REPOSITIONED IN BED. MEDS GIVEN PER SEP.
[2017-06-18 04:00] VITALS: BP 142/77
--- NOTE | 2017-06-18 06:18 | NUR ---
PT HAD 250CC'S BILE COLORED EMESIS ZOFRAN 4MG IVP GIVEN FOR EMESIS. COMPLETE BATH WITH LINENS CHANGED. UP IN CHAIR AT BEDSIDE.FAMILY AT BEDSIDE.
--- NOTE | 2017-06-18 06:36 | NUR ---
INSTRUCTED PATIENT AND FAMILY MEMBERS THAT PATIENT NEEDS TO WALK MORE IN THE HALLWAYS TO AVOID AN NGT PLACEMENT.
--- NOTE | 2017-06-18 08:00 | NUR ---
ASSESSMENT PER FLOW SHEET.PT WITHOUT DISTRESS.HAS AMBULATED IN [place] THIS AM.PT STATES HAD SOME EMESIS BEFORE AMBULATING. ALSO STATES SHE FEELS BETTER AFTERWARD.MONITOR FOR NEDS
[2017-06-18 08:55] VITALS: BP 154/85
--- NOTE | 2017-06-18 12:00 | NUR ---
HAS HAD SOME LOOSE STOOLS THIS AM.STATES HER STOMACH HURTS AFTER BM. MONITOR FOR NEEDS
[2017-06-18 13:25] VITALS: BP 140/92
--- NOTE | 2017-06-18 13:31 | NUR ---
ZOFRAN ORDERED FOR NAUSEA.PT STATES VOMITED AROUND 0500 THIS AM,BUT HAS FEELING OF NAUSEA AT ALL TIMES. SHE HAS HAD 5 LOOSE STOOLS TODAY. INSTRUCTED PT WE WILL WALK IN HALLWAY AGAIN AFTER NAUSEA IS BETTER.
--- NOTE | 2017-06-18 15:19 | NUR ---
MACHINE OPERATOR REPLANTER DCD ORDERED.PT DECLINES PAIN MEDS AT THIS TIME. HAS SOME NAUSEA.WAITING ON ZOFRAN DRIP FROM PHARMACY.
[2017-06-18 16:46] VITALS: BP 157/92
--- NOTE | 2017-06-18 18:02 | NUR ---
RESTING NOW AFTER AMBULATING.HAD EMESIS AGAIN THIS AFTERNOON. PAIN CONTROLLED AT PRESENT WITH PO MEDS ORDERED.AWAKENS INT.CONT PLAN OF CARE
--- NOTE | 2017-06-18 19:30 | NUR ---
CALLED TO ROOM BY PT. STATES HIS MOUTH AND FACE IS BURNING. IV VANC STOPPED AND DR. MCKINNEY PAGED. ORDERS RECIEVED AND INITIATED
[2017-06-18 20:00] VITALS: BP 122/70
--- NOTE | 2017-06-18 21:50 | NUR ---
PATIENT ACTIVELY VOMITING. SCOPALAMINE PATCH ON AND IV ZOFRAN INFUSING AT 4.7mL/HR. DIRECTOR OF HOME ECONOMICS CALLED, ANSWERING SERVICE CALLED FOR ON-CALL SURGEON.
--- NOTE | 2017-06-18 22:31 | NUR ---
SECOND PAGE PUT TO THE SURGEON MECHANIC AND WELDER.
--- NOTE | 2017-06-18 23:28 | NUR ---
WOOD DIE MAKER SAID THE PATIENT IS REQUESTING PAIN MEDICATION. LET PATIENT KNOW WHAT TIME SHE RECIEVED HER LAST PAIN PILL. PATIENT'S FAMILY MEMBER IS AT THE BEDSIDE HOLDING HER HAND. BED IN LOWEST POSITION, CALL LIGHT IN REACH. RESPIRATIONS ARE EVEN AND UNLABORED ON ROOM AIR.
[2017-06-19] VITALS: BP 152/93
--- NOTE | 2017-06-19 00:52 | NUR ---
NORCO 10 GIVEN FOR 9/10 PAIN TO THE ABDOMEN.
[2017-06-19 04:00] VITALS: BP 134/80
--- NOTE | 2017-06-19 04:33 | NUR ---
NORCO 10 GIVEN FOR FEVER 101.4 AND EXACERBATED ABDOMINAL PAIN
--- NOTE | 2017-06-19 06:37 | NUR ---
PATIENT'S ABDOMEN IS DISTENDED AND TENDER TO TOUCH. COMPLAINING OF 10/10 SHARP PAIN. NORCO 10 IS HAVING MINIMAL EFFECT FOR PAIN CONTROL. HEATING PAD APPLIED TO ABDOMEN. PATIENT HAS BEEN UP AND DOWN TO CHAIR MULTIPLE TIMES THROUGH SALES AND MARKETING SPECIALIST.
--- NOTE | 2017-06-19 07:55 | NUR ---
REC'D SITTING UP IN CHAIR. ALERT AND ORIENTED X4. REPORTED PAIN 10/10 IN ABD. ABD IS DISTENDED AND TENDER TO TOUCH. MOTHER IS CONCERNED ABOUT HER TEMP. TOOK TEMP AND IT WAS 100.1. WILL CONT TO MONITOR. INSTRUCTED TO CALL IF NEEDED ANYTHING, VERBALIZED UNDERSTANDING. BED LOW, LOCKED CALL LIGHT IN REACH.
[2017-06-19 09:13] VITALS: BP 131/77
[2017-06-19 09:49] LABS: APPEARANCE CLEAR (CLEAR); BILIRUBIN NEGATIVE (NEGATIVE); COLOR DK YELLOW (YELLOW); GLUCOSE 100 mg/dL (NEGATIVE); KETONE LARGE mg/dL (NEGATIVE); NITRITE NEGATIVE (NEGATIVE); PROTEIN NEGATIVE (NEGATIVE); SPECIFIC GRAVITY 1.015 (1.005-1.020)
[2017-06-19 09:56] LABS: BASOPHILS 0 % (0-2); EOSINOPHILS 0 % (0-7); HEMATOCRIT 24.3 % (36.0-48.0); HEMOGLOBIN 8.1 g/dL (12-16); IMMATURE GRANULOCYTES 0.3 % (0-5); LYMPHOCYTES 2.7 % (15-50); MCHC 33.3 g/dL (31.0-37.0); MEAN PLATELET VOLUME 9.8 fL (7.4-10.4); MONOCYTES 4.6 % (2-11); NEUTROPHILS 92.4 % (40-80); PLATELET COUNT 381 10x3/uL (130-400); RDW 13.4 % (11.5-14.5); WBC 19.8 10x3/uL (4.8-10.8)
[2017-06-19 10:14] LABS: ALBUMIN 2.1 g/dL (3.4-5.0); ALKALINE PHOSPHATASE 51 U/L (46-116); ALT (SGPT) 35 U/L (10-68); BILIRUBIN - TOTAL 0.98 mg/dL (0.2-1.3); CALC OSMOLALITY 274 mosm/kg (275-300); CALCIUM 8.5 mg/dL (8.5-10.1); CARBON DIOXIDE 20.6 mmol/L (21.0-32.0); CHLORIDE - SERUM 103 mmol/L (98-107); CREATININE - SERUM 0.8 mg/dL (0.6-1.3); GLUCOSE 136 mg/dL (74-106); POTASSIUM - SERUM 3.4 mmol/L (3.5-5.1); PROTEIN - SERUM 6.1 g/dL (6.4-8.2); SODIUM 137 mmol/L (136-145); UREA NITROGEN 9 mg/dL (7-18); eGFR NON AFRICAN AMERICAN 82 mL/min (90-120)
--- NOTE | 2017-06-19 11:20 | NUR ---
IS RESTING NOW. OPERATIONAL INTELLIGENCE ANALYST SEEMS TO HAVE DECREASED HER PAIN. AWAITING CT SCAN AND BLOOD CLUTURES.
[2017-06-19 13:16] VITALS: BP 119/81
[2017-06-19 15:53] VITALS: BP 117/58
--- NOTE | 2017-06-19 15:58 | NUR ---
VISITING WITH . DENIES ANY NEEDS AT THIS TIME.
[2017-06-19 20:56] VITALS: BP 105/60
[2017-06-20] VITALS (12 sets, daily range): BP systolic 98–131; BP diastolic 53–75
--- NOTE | 2017-06-20 00:27 | NUR ---
1 UNIT OF PRBC STARTED AT 100mL/HR IN RIGHT WRIST.
--- NOTE | 2017-06-20 02:13 | NUR ---
PIV IN RIGHT WRIST STARTED LEAKING WHILE BLOOD WAS INFUSING. NEW PIV 22G STARTED IN LEFT UNDER WRIST BY MUSHTAQ SHIN FROM ER AFTER MULTIPLE FAILED ATTEMPS. BLOOD IS IFUSING WITH RATE INCREASES TO 150mL/HR
--- NOTE | 2017-06-20 03:11 | NUR ---
BLOOD INFUSION RATE INCREASED TO 175mL/HR
--- NOTE | 2017-06-20 04:00 | NUR ---
MAIN PRBC BAG COMPLETE, FLUSHING LINE UNTIL 0405.
--- NOTE | 2017-06-20 04:45 | NUR ---
PT IN PAIN. TRYING TO GET COMFORTABLE AND REST. CONTINUE ADJUNCT LATIN PROFESSOR'S PLAN OF CARE AND CONTINUE TO MONITOR.
--- NOTE | 2017-06-20 07:43 | NUR ---
REC'D SITTING UP IN CHAIR. ALERT AND ORIENTED X4. DENIED PAIN AT THIS TIME. NGT TO LEFT DAVID, LOW INTERMIT SUCTION. DENIED NEEDS AT THIS TIME. INSTRUCTED TO CALL IF NEEDED ANYTHING, VERBALIZED UNDERSTANDING. FAMILY IS AT BEDSIDE. NO DISTRESS NOTED. WILL CONT TO MONITOR.
[2017-06-20 08:01] LABS: HEMATOCRIT 23.6 % (36.0-48.0); HEMOGLOBIN 8.2 g/dL (12-16); MCHC 34.7 g/dL (31.0-37.0); MCV 86.4 fL (80.0-100.0); MEAN PLATELET VOLUME 9.7 fL (7.4-10.4); PLATELET COUNT 309 10x3/uL (130-400); RBC 2.73 10x6/uL (4.00-5.40); RDW 13.7 % (11.5-14.5); WBC 22.1 10x3/uL (4.8-10.8)
[2017-06-20 08:22] LABS: LYMPHOCYTES 7 % (15-50); MONOCYTES 3 % (2-11); NEUTROPHILS 84 % (40-80)
[2017-06-20 08:23] LABS: PLATELET MORPHOLOGY GIANT PLTS PRESENT
[2017-06-20 08:33] LABS: PLATELET ESTIMATE NORMAL
--- NOTE | 2017-06-20 19:43 | NUR ---
PT IN BED WITH EYES CLOSED AND CHEST RISING. FAMILY AT BEDSIDE. NO CONCERNS NOTED AT THIS TIME. CALL LIGHT IN REACH. NG TO LEFT NARE PATENT WITH INTERMITTENT SUCTIONING. TOLERATING WELL. RECEIEVING NS AT 75ML/HR, PROCALAMINE AT 50ML/HR, ZOFRAN AT 4.7 TO LEFT WRIST WITH CLEANING MAID DILAUDID 0.2 Q 10MIN. PT AROUSED TO VERBAL STIMULI. WILL CONTINUE TO OBSERVE.
--- NOTE | 2017-06-20 22:30 | NUR ---
PT IN BED WITH EYES CLOSED AND CHEST RISING. NO S/S OF DISTRESS NOTED. FAMILY AT BEDSIDE. WILL CONTINUE TO OBSERVE. PT FREQUENT BENDING LEFT WRIST AND OCCLUDING IV WITH WRIST STRAIGTENED AND IV RESTARTED. WILL CONTINUE TO OBSERVE. CALL LIGHT IN REACH.
--- NOTE | 2017-06-21 00:35 | NUR ---
PT IN BED WITH FAMILY IN ROOM AT BEDSIDE. NO S/S OF DISTRESS NOTED AT THIS TIME. CALL LIGHT IN REACH. WILL CONTINUE TO OBSERVE.
[2017-06-21 01:58] VITALS: BP 113/60
--- NOTE | 2017-06-21 02:52 | NUR ---
PT IN BED WITH EYES CLOSED AND CHEST RISING. PT LINENS CHANGED DUE TO LEAKAGE OF NG TUBING AND NGT TAPE LOOSE FROM NOSE. RESECURED AND NEW VALVE PLACE ON NGT. NO OTHER CONCERNS NOTED AT THIS TIME. CALL LIGHT IN REACH. FAMILY IN RECLINING CHAIR AT BEDSIDE. WILL CONTINUE TO OBSERVE.
[2017-06-21 03:59] VITALS: BP 108/53
--- NOTE | 2017-06-21 07:15 | NUR ---
ASSESSMENT PER FLOW SHEET.PT HAS HAD APROX 400-500 CC OF GREENISH YELLOW EMESIS THIS AM.SHE IS CURRENTLY WITHOUT DISTRESS.SHE IS WITHOUT COMPLAINTS OF PAIN. MONITOR FOR NEEDS.
[2017-06-21 08:52] VITALS: BP 110/59
[2017-06-21 10:04] LABS: BASOPHILS 0.1 % (0-2); EOSINOPHILS 0.1 % (0-7); IMMATURE GRANULOCYTES 0.6 % (0-5); LYMPHOCYTES 8.6 % (15-50); MCHC 37.2 g/dL (31.0-37.0); MEAN PLATELET VOLUME 10.5 fL (7.4-10.4); NEUTROPHILS 85.6 % (40-80); PLATELET COUNT 308 10x3/uL (130-400)
[2017-06-21 10:10] LABS: HEMATOCRIT 14.5 % (36.0-48.0); HEMOGLOBIN 5.4 g/dL (12-16); MCV 83.3 fL (80.0-100.0); RBC 1.74 10x6/uL (4.00-5.40)
[2017-06-21 10:15] LABS: ALBUMIN 1.9 g/dL (3.4-5.0); BILIRUBIN - TOTAL 1.1 mg/dL (0.2-1.3); CALCIUM 8.2 mg/dL (8.5-10.1); CARBON DIOXIDE 21.1 mmol/L (21.0-32.0); CREATININE - SERUM 6.2 mg/dL (0.6-1.3); POTASSIUM - SERUM 4.1 mmol/L (3.5-5.1); PROTEIN - SERUM 5.3 g/dL (6.4-8.2)
--- NOTE | 2017-06-21 10:25 | NUR ---
SPOKE WITH DR.BREVING AMATO.. LABS HGB AND HCT.JCARLOS RECIEVED AND INITIATED.
--- NOTE | 2017-06-21 10:45 | NUR ---
UNIT 1 OF 3 PRBC'S INITIATED.PT IS WITHOUT REACTIONS.MONITOR FOR CHANGE
--- NOTE | 2017-06-21 12:13 | NUR ---
SECOND IV STARTED TO LEFT AC X1 STICK USING ASEPTIC TECH 22G.PAIN MEDS RESUMED THROUGH THAT IV. BLOOD STILL INFUSING.PT WITHOUT DISTRESS.
--- NOTE | 2017-06-21 13:45 | NUR ---
UNIT 1 OF 3 PRB'S COMPLTE.PT WITHOUT REACTIONS.
--- NOTE | 2017-06-21 15:00 | NUR ---
PT WITHOUT NEEDS.UNIT 2 OF 3 PRBC'S INITIATED.PT WITHOUT REACTIONS
--- NOTE | 2017-06-21 16:58 | NUR ---
16 GREEK MAJANO CATHETER INSERTED USING JAVA PERFORMANCE ENGINEER. 350CC OF VERY DARK PRASANNA URINE RETURN IN COLLECTION CONTAINER.
--- NOTE | 2017-06-21 19:30 | NUR ---
UNIT #3 OF BLOOD NOT GIVEN PREOP MEDS GIVEN BY Sanchez CALI RN SURGERY CREW SHOULD BE COMING TO GET PATIENT WITHIN THE HOUR. FAMILY AT BEDSIDE. IV PATENT RT AC OF NS AT 75CC'S/HR PROCAL AT 50CC'S/HR INFLATABLE BUILDINGS LAMINATOR DILAUDID IN USE WITH SETTINGS AT 0.2MG Q10 MIN W/NO L/O. MAJANO TO BEDSIDE DRAINAGE WITH DARK PRASANNA URINE. REMAINS NPO FOR SURGERY.
[2017-06-21 20:00] VITALS: BP 126/51
--- NOTE | 2017-06-21 21:00 | NUR ---
STILL WAITING FOR SURGERY CREW TO COME AND CLIENT EXPERIENCE ADMINISTRATOR PATIENT.
--- NOTE | 2017-06-21 23:00 | NUR ---
REMAINS NPO STILL WAITING FOR SURGERY CREW TO GROUP PRESIDENT PATIENT.TEMP-101.6 AX ICE APPLIED TO PATIENT'S NECK REMOVED BLANKETS FROM PATIENT.NGT TO KNOCKOUT MAN WITH DARK GREEN DRAINAGE.
[2017-06-22] VITALS (39 sets, daily range): BP systolic 89–142; BP diastolic 53–97; Ht 170.2 cm; Wt 106.4 kg
--- NOTE | 2017-06-22 01:00 | NUR ---
TO SURGERY PER BED FAMILY AT BEDSIDE. SPOKE WITH DR. TRAMMELL PATIENT WILL BE GOING TO ICU POST OP. SPOKE WITH CINDY CABELLO NURSE OF ICU AND GAVE HER A REPORT ON THIS PATIENT.
[2017-06-22 01:54] LABS: BASOPHILS 0.1 % (0-2); EOSINOPHILS 0.1 % (0-7); IMMATURE GRANULOCYTES 0.9 % (0-5); LYMPHOCYTES 5.9 % (15-50); MCHC 36.6 g/dL (31.0-37.0); MCV 82.1 fL (80.0-100.0); MEAN PLATELET VOLUME 9.7 fL (7.4-10.4); MONOCYTES 4.8 % (2-11); NEUTROPHILS 88.2 % (40-80); RDW 14.6 % (11.5-14.5); WBC 15.5 10x3/uL (4.8-10.8)
[2017-06-22 01:57] LABS: HEMOGLOBIN 6.7 g/dL (12-16); RBC 2.23 10x6/uL (4.00-5.40)
[2017-06-22 01:58] LABS: HEMATOCRIT 18.3 % (36.0-48.0); PLATELET COUNT 244 10x3/uL (130-400)
[2017-06-22 02:08] LABS: CALCIUM 7.5 mg/dL (8.5-10.1); CARBON DIOXIDE 21.9 mmol/L (21.0-32.0); CREATININE - SERUM 7.2 mg/dL (0.6-1.3); POTASSIUM - SERUM 3.9 mmol/L (3.5-5.1)
--- NOTE | 2017-06-22 03:40 | NUR ---
PT REC'D TO ROOM 2312 FROM SURGERY, PT PLACED ON VENT VIA 7.5 ETT TAPED @ 23CM LIPLINE SEE FLOWSHEET FOR VENT SETTINGS, LEFT NARE NGT SECURED WITH SHAISTA PLACED TO LIWS WITH IMMEDIATE RETURN OF GREEN DRAINAGE, LEFT WRIST PIV SALINE LOCKED, RIGHT A/C PIV WITH NS @ 75CC/HR, RIJ TRIALYSIS, DRSG CDI, MIDLINE ABDOMINAL INCISION DRSG CDI, RIGHT AND LEFT LOWER QUADRANT RAMOS DRAINS TO BULB SUCTION WITH SANGUINOUS DRAINAGE, MAJANO PATENT DRAINING SMALL AMOUNT PRASANNA COLORED URINE, BILAT SCDS INTACT AND ON, PPP, BILAT SOFT WRIST RESTRAINTS APPLIED, CM-ST @ 128 BP 110/68.
--- NOTE | 2017-06-22 03:55 | NUR ---
CBC ORDERED PER DR. TRAMMELL, HR AND BP REMAIN ELEVATED, DIPRIVAN BEGUN VIA TRIALYSIS @ 10 MCG/KG/MIN.
[2017-06-22 04:02] LABS: BASOPHILS 0.2 % (0-2); EOSINOPHILS 0.2 % (0-7); IMMATURE GRANULOCYTES 1.6 % (0-5); MCH 30.2 pg (26.0-34.0); MCHC 35.2 g/dL (31.0-37.0); MEAN PLATELET VOLUME 10.3 fL (7.4-10.4); PLATELET COUNT 214 10x3/uL (130-400); WBC 14.6 10x3/uL (4.8-10.8)
[2017-06-22 04:04] LABS: HEMATOCRIT 32.7 % (36.0-48.0); HEMOGLOBIN 11.5 g/dL (12-16); MCV 85.8 fL (80.0-100.0); RBC 3.81 10x6/uL (4.00-5.40)
--- NOTE | 2017-06-22 04:30 | NUR ---
ZOFRAN GTT RESUMED @ 4.7CC/HR AND PROCALAMINE @ 50CC/HR, ATTEMPTED TO BRING FAMILY IN FROM WAITING ROOM, NO ONE HERE AT THIS TIME, VSS, WILL MONITOR CLOSELY FOR CHANGES.
--- NOTE | 2017-06-22 06:10 | NUR ---
DIPRIVAN INCREASED, PT OPENING EYES TO VERBAL STIMULI AND GAGGING ON ETT, ORAL CARE PROVIDED, THICK WHITE SECRETIONS SUCTIONED FROM MOUTH, NO VISITORS IN AT THIS TIME.
--- NOTE | 2017-06-22 06:35 | NUR ---
PT'S FATHER AT BS, UPDATE GIVEN AND QUESTIONS ANSWERED.
--- NOTE | 2017-06-22 07:00 | NUR ---
RE'D REPORT AND RESUMED CARE, ETT TO VENTILATION AND SECURED, VENT SETTING PER FLOWSHEET, NGT TO LIWS GREEN DRAINAGE TO CANISTER, RIGHT IJ TRIALYSIS WITH IVF PER FLOWSHET, RIGHT AC WITH ZOFRAN GTT, RAMOS L AND R WITH BLOODY DRAINAGE, MAJANO TO GRAVITY WITH DARK DRAINAGE TO BAG, SCD'S B/L, ASSESSMENT COMPLETE PER FLOWSHEET, SINUS TACH ON MONITOR WITH ST ELEVATION, REPOSITIONED TO BACK WITH HEELS FLOATED
--- NOTE | 2017-06-22 08:15 | NUR ---
PC TO DR VALERI TAFOYA HEART RATE AND BUN AND CR LEVELS, CONSULTS FOR CARDIOLOGY, PULMONOLOGY, AND NEPHROLOGY MADE WITH NEW ORDERS
[2017-06-22 08:38] LABS: BASOPHILS 0.3 % (0-2); EOSINOPHILS 0.1 % (0-7); HEMATOCRIT 34.5 % (36.0-48.0); HEMOGLOBIN 12.5 g/dL (12-16); IMMATURE GRANULOCYTES 1.3 % (0-5); LYMPHOCYTES 6.5 % (15-50); MCH 30.2 pg (26.0-34.0); MCHC 36.2 g/dL (31.0-37.0); MEAN PLATELET VOLUME 10.5 fL (7.4-10.4); MONOCYTES 4.7 % (2-11); NEUTROPHILS 87.1 % (40-80); PLATELET COUNT 249 10x3/uL (130-400); RBC 4.14 10x6/uL (4.00-5.40); RDW 14.4 % (11.5-14.5); WBC 18.2 10x3/uL (4.8-10.8)
[2017-06-22 08:42] LABS: MCV 83.3 fL (80.0-100.0)
[2017-06-22 08:58] LABS: ALBUMIN 1.6 g/dL (3.4-5.0); ANION GAP 16.8 mmol/L (8-16); BILIRUBIN - TOTAL 3.46 mg/dL (0.2-1.3); CALCIUM 7.5 mg/dL (8.5-10.1); CARBON DIOXIDE 19.2 mmol/L (21.0-32.0); CREATININE - SERUM 7.2 mg/dL (0.6-1.3); PROTEIN - SERUM 5.3 g/dL (6.4-8.2)
--- NOTE | 2017-06-22 09:00 | NUR ---
AM MEDS GIVEN PER FLOWSHEET
--- NOTE | 2017-06-22 09:25 | NUR ---
NUTRITION F/U CHART REVIEWED. SPOKE WITH NURSING. PT REMAINS SEDATED ON VENT. PROCALAMINE @ 50 CC/HR PROVIDING 294 KCAL, 36 GM PROTEIN PER DAY. DIPRIVAN @ 12.1 CC/HR PROVIDING ADDITIONAL 319 KCAL PER DAY. TOTAL 613 KCAL, [address] RD FOLLOWING
--- NOTE | 2017-06-22 11:00 | NUR ---
NO ACUTE CHANGE FROM PREVIOUS ASSESSMENT, REPOSITIONED TO RIGHT SIDE WITH PILLOW PROPPED TO BACK AND HEELS FLOATED
--- NOTE | 2017-06-22 12:00 | NUR ---
FAMILY IN WAITING ROOM YELLING, SPOKE WITH YOUNG LADY WHO STATED THIS PATIENT IS LIKE A MOTHER TO HER AND SHE WANTS TO KNOW WHAT IS GOING ON, I LET HER KNOW THAT I WOULD GLADLY SPEAK TO HER IN THE PATIENTS ROOM, SHE STATED THAT IT WAS NOT HER YELLING AND THAT SHE WAS GOING TO LEAVE THE ICU WAITNG ROOM AND WAIT IN THE CAR, LIMITED UPDATE GIVEN VISITOR DID NOT HAVE PASSWORD FOR COMPLETE UPDATE, SHE HAD NO OTHER NEEDS AT THIS TIME.
[2017-06-22 14:37] LABS: ANION GAP 16.3 mmol/L (8-16); CALCIUM 7.3 mg/dL (8.5-10.1); CARBON DIOXIDE 18.9 mmol/L (21.0-32.0); CREATININE - SERUM 7.9 mg/dL (0.6-1.3); POTASSIUM - SERUM 4.2 mmol/L (3.5-5.1)
--- NOTE | 2017-06-22 15:00 | NUR ---
BATH AND LINEN CHANGE COMPLETED, WASH CAP APPLIED TO HAIR, ASSESSMENT COMPLETED PER FLOWSHEET,
--- NOTE | 2017-06-22 19:20 | NUR ---
REPORT REC'D AND CARE ASSUMED, REC'D PT ON VENT VIA 7.5ETT TAPED AT 23CM LIPLINE SEE FLOWSHEET FOR VENT SETTINGS, PT AWAKENS TO VERBAL STIMULI, FOLLOWING COMMANDS AND ATTEMPTING TO TALK, LEFT NARE NGT TO LIWS WITH GREEN DRAINAGE PRESENT, PLACEMENT VERIFIED VIA SM AIR BOLUS AUSCULTATED OVER EPIGASTRIM, LEFT WRIST PIV WITH MANNIFOLD NS @ 10CC/HR, ZOFRAN @ 4.7CC/HR, PROCALAMINE @ 50CC/HR, AND DIPRIVAN @ 25MCG/KG/MIN, RIGHT A/C PIV WITH NS WITH 1 AMP BICARB @ 75CC/HR, MIDLINE ABD DRSG CDI, RIGHT AND LEFT RAMOS DRAINS TO LOWER QUADRANTS COMPRESSED WITH SANGUINOUS DRAINAGE PRESENT, LEFT GREATER THAN RIGHT, CM-ST @ 108, MAJANO PATENT DRAINING PRASANNA COLORED URINE, BILAT SCD'S INTACT, BILAT SOFT WRIST RESTRAINTS INTACT, VISIBLE TO NURSES STATION.
[2017-06-22 19:53] LABS: HEMATOCRIT 27.9 % (36.0-48.0); HEMOGLOBIN 10.4 g/dL (12-16)
--- NOTE | 2017-06-22 20:10 | NUR ---
1 UNIT OF PLATELETS GIVEN ORDERED
--- NOTE | 2017-06-22 20:30 | NUR ---
NO VISITORS IN AT THIS TIME.
--- NOTE | 2017-06-22 21:15 | NUR ---
SON AT BS, UPDATE GIVEN AND QUESTIONS ANSWERED.
--- NOTE | 2017-06-22 22:00 | NUR ---
PRBC STARTED ORDERED, PT RESTING EYES CLOSED, RESP EVEN AND UNLABORED, VSS.
--- NOTE | 2017-06-22 23:30 | NUR ---
REASSESSMENT COMPLETED, PT REPOSITIONED IN BED FOR COMFORT AND UP ONTO RIGHT SIDE SUPPORTED WITH PILLOWS, RAMOS# 1 PUT OUT 20CC AND RAMOS #2 PUT OUT 80CC, VSS, BLOOD CONTINUES WITHOUT DIFFICULTY, WILL MONITOR FOR CHANGES.
[2017-06-23] VITALS (24 sets, daily range): BP systolic 132–163; BP diastolic 84–99
--- NOTE | 2017-06-23 01:30 | NUR ---
PRBC COMPLETED, NO S/S OF REACTION NOTED.
--- NOTE | 2017-06-23 03:45 | NUR ---
RADIOLOGY AT BS FOR AM CXR
--- NOTE | 2017-06-23 04:00 | NUR ---
AM LAB DRAWN FROM [facility] TRI[facility] AND SENT TO LAB
[2017-06-23 04:18] LABS: HEMATOCRIT 30.3 % (36.0-48.0); HEMOGLOBIN 11.1 g/dL (12-16); MCH 30.2 pg (26.0-34.0); MCHC 36.6 g/dL (31.0-37.0); MCV 82.6 fL (80.0-100.0); MEAN PLATELET VOLUME 10.4 fL (7.4-10.4); PLATELET COUNT 302 10x3/uL (130-400); RBC 3.67 10x6/uL (4.00-5.40); RDW 14.7 % (11.5-14.5); WBC 23.1 10x3/uL (4.8-10.8)
[2017-06-23 04:49] LABS: ALBUMIN 1.7 g/dL (3.4-5.0); ANION GAP 19.2 mmol/L (8-16); BILIRUBIN - TOTAL 5.13 mg/dL (0.2-1.3); CALCIUM 7.5 mg/dL (8.5-10.1); CARBON DIOXIDE 18.7 mmol/L (21.0-32.0); MAGNESIUM - SERUM 2.6 mg/dL (1.8-2.4); PHOSPHOROUS 4.2 mg/dL (2.5-4.9); POTASSIUM - SERUM 3.9 mmol/L (3.5-5.1); PROTEIN - SERUM 5.1 g/dL (6.4-8.2)
[2017-06-23 04:50] LABS: LYMPHOCYTES 3 % (15-50); MONOCYTES 7 % (2-11); NEUTROPHILS 70 % (40-80); PLATELET ESTIMATE NORMAL
--- NOTE | 2017-06-23 05:00 | NUR ---
PT INCONTINENT OF WATERY YELLOW STOOL WITH SM AMOUNT OF MUCUS, BATH AND LINEN CHANGE PROVIDED, PT REPOSTIONED UP IN BED AND ONTO LEFT SIDE SUPPORTED WITH PILLOWS, BP STABLE, NO VISITORS IN THIS AM.
--- NOTE | 2017-06-23 07:15 | NUR ---
PT SEDATED ON VENT, OPENS EYES WITH STIMULI, VSS, ETT 23AT LIP, NGT LIS, R TRIALYSIS CDI, PIV TO RAC AND L WRIST, BICARB 75ML/HR, DIPROVAN 30MCG/KG, NS 10ML/HR, PROCALAMINE AT 50ML/HR, ZOFRAN 4.7ML/HR, MAJANO DRAINING CONCENTRATED YELLOW URINE, BILAT SOFT WRIST RESTRAINTS IN PLACE, ABD DRESSING CDI, RAMOS TO LEFT AND RIGHT LOWER ABD WITH 110 BLOODY DRAINAGE EMPTIED FROM RAMOS 2, REPOSITIONED, WILL CONTINUE TO MONITOR
--- NOTE | 2017-06-23 09:07 | NUR ---
PT REPOSITIONED, WHEN REPOSITIONED SPO2 DROPPING TO 89 AND HR DROPPING INTO 80S, BOTH QUICKLY RECOVER TO PREVOUS 99%SPO2 AND HR IN 100S-110S, MULTIPLE FAMILY IN ROOM TO SEE PT FOR VISITATION, DR TRAMMELL PREVIOUSLY SAW PT, NO NEEDS AT THIS TIME, WILL CONTINUE TO MONITOR
--- NOTE | 2017-06-23 11:30 | NUR ---
TOTAL BED BATH AND LINEN CHANGE, CONFIRMED WITH DR BRIDGES THAT HE IS NOT PLANNING TO WEAN VENT TODAY AND CAN INCREASE SEDATION SHE IS MOVING LEGS AND COUGHING ON VENT
--- NOTE | 2017-06-23 13:32 | NUR ---
PT CONTINUES SEDATED ON VENT, FAMILY SPOKE TO DR BRIDGES AND EVAN WHO ANSWERED ALL QUESTIONS, NO NEEDS NOTED, WILL CONTINUE TO MONITOR
--- NOTE | 2017-06-23 15:07 | NUR ---
PT REPOSITIONED VSS, NO SIGSN OF PAIN, PROPOFOL TITRATED TO 45MCG/KG AND PT IS NOW CALM NO LONGER TURNING HEAD AND MOVING ARMS TOWARD FACE
--- NOTE | 2017-06-23 19:35 | NUR ---
REPORT REC'D AND CARE ASSUMED, PT AWAKENS TO VERBAL STIMULI BUT DOES NOT FOLLOW COMMANDS AT THIS TIME, LEFT NARE NGT TO LIWS WITH GREEN DRAINAGE PRESENT, PLACEMENT VERIFIED VIA SM AIR BOLUS AUSCULTATED OVER EPIGASTRIM, RIJ TRIALYSIS CATHETER WITH MANNIFOLD TO NURSE PORT, NS @ 10CC/HR, ZOFRAN @ 4.7CC/HR, PROCALAMINE @ 50CC/HR AND DIPRIVAN @ 45MCG/KG/MIN, RIGHT A/C PIV WITH NS WITH 1AMP BICARB @ 75CC/HR, LEFT WRIST SALINE LOCK, MIDLINE AND LOWER ABD DRSG CDI, RIGHT LOWER QUADRANT RAMOS COMPRESSED WITH SEROSANGUINOUS DRAINAGE, LEFT LOWER QUADRANT RAMOS COMPRESSED WITH SEROSANGUINOUS DRAINAGE, BS HYPOACTIVE, MAJANO PATENT DRAINING YELLOW URINE, BILAT SCD'S ON, BILAT SOFT WRIST RESTRAINTS INTACT.
--- NOTE | 2017-06-23 20:30 | NUR ---
NO VISITORS IN AT THIS TIME.
--- NOTE | 2017-06-23 21:05 | NUR ---
PT REPOSITIONED UP IN BED AND ONTO LEFT SIDE SUPPORTED WITH PILLOWS, SHAISTA NG TUBE MENDOSA CHANGED, FACE WASHED AND ORAL CARE PROVIDED.
--- NOTE | 2017-06-23 23:30 | NUR ---
REASSESSMENT COMPLETED, PT REPOSITIONED ONTO LEFT SIDE SUPPORTED WITH PILLOWS, ORAL CARE COMPLETED, VSS, WILL CONT TO MONITOR FOR CHANGES.
[2017-06-24] VITALS (24 sets, daily range): BP systolic 136–169; BP diastolic 77–101
--- NOTE | 2017-06-24 01:30 | NUR ---
NO CHANGES IN STATUS AT THIS TIME, VSS, WILL CONT TO MONITOR.
--- NOTE | 2017-06-24 03:00 | NUR ---
REASSESSMENT COMPLETED, NO CHANGES FROM PREVIOUS ASSESSMENT, PT RESTING EYES CLOSED, VSS.
--- NOTE | 2017-06-24 04:45 | NUR ---
COMPLETE BATH AND LINEN CHANGE GIVEN, BED PAD WET WITH LIGHT YELLOW MUCUS, ORAL CARE PROVIDED, PT REPOSITIONED UP IN BED, SCDS REMAIN OFF FOR BREAK, PT REPOSITIONED ONTO LEFT SIDE SUPPORTED WITH PILLOWS.
--- NOTE | 2017-06-24 05:30 | NUR ---
LAB DRAWN FROM [facility] AND SENT TO LAB
[2017-06-24 06:17] LABS: HEMATOCRIT 30.2 % (36.0-48.0); HEMOGLOBIN 11.1 g/dL (12-16); MCH 30.4 pg (26.0-34.0); MCHC 36.8 g/dL (31.0-37.0); MCV 82.7 fL (80.0-100.0); MEAN PLATELET VOLUME 10.6 fL (7.4-10.4); PLATELET COUNT 319 10x3/uL (130-400); RBC 3.65 10x6/uL (4.00-5.40); WBC 30.1 10x3/uL (4.8-10.8)
[2017-06-24 07:08] LABS: ALBUMIN 1.4 g/dL (3.4-5.0); ANION GAP 20.5 mmol/L (8-16); BILIRUBIN - TOTAL 5.16 mg/dL (0.2-1.3); CALCIUM 7.8 mg/dL (8.5-10.1); CARBON DIOXIDE 19.3 mmol/L (21.0-32.0); CREATININE - SERUM 7.7 mg/dL (0.6-1.3); MAGNESIUM - SERUM 2.6 mg/dL (1.8-2.4); PHOSPHOROUS 5.1 mg/dL (2.5-4.9); POTASSIUM - SERUM 3.8 mmol/L (3.5-5.1); PROTEIN - SERUM 5.8 g/dL (6.4-8.2); VANCOMYCIN - RANDOM 11.8 ug/mL (10.0-20.0)
[2017-06-24 07:13] LABS: EOSINOPHILS 2 % (0-7); LYMPHOCYTES 12 % (15-50); MONOCYTES 8 % (2-11); NEUTROPHILS 64 % (40-80); PLATELET ESTIMATE NORMAL
--- NOTE | 2017-06-24 07:15 | NUR ---
PT SEDATED ON VENT, OPENS EYESTO VERBAL STIMULI, ETT IN PLACE, NGT TO LIS, RIJ TRIALYSIS CDI, PIV TO RAC AND LWRIST, PROPOFOL 30MCG/KG, NS 10, BICARB 75ML/HR, DRESSINGS TO ABD CDI, RAMOS TO LEFT AND RIGHT ABD COMPRESSED WITH BLOODY DRAINAGE, SCDS IN PLACE, REPOSITIONED, WILL CONTINUE TO MONITOR
--- NOTE | 2017-06-24 08:56 | NUR ---
PT REPOSITIONED, VSS, MOTHER IN ROOM FOR VISITATION DENIES ANY QUESTIONS, WILL CON TINUE TO MONITOR
--- NOTE | 2017-06-24 10:04 | NUR ---
NUTRITION F/U CHART REVIEWED. PT REMAINS ON VENT, SEDATED. PROCALAMINE @ 50 CC/HR PROVIDING 294 KCAL, 36 GM PROTEIN PER DAY. DIPRIVAN PROVIDING 800 KCAL/DAY. TOTAL 1094 KCAL, [address] PR[address] DAY. RD FOLLOWING
--- NOTE | 2017-06-24 11:24 | NUR ---
PT SWITCHED TO CPAP BY DR BRIDGES, SEDATED WEANED OFF AFTER TALKING WITH CYRUS, VSArely, ALERT AND ABLE TO FOLLOW COMMANDS, EXPLAINED SITUATION TO PT WHO NODS IN UNDERSTANDING, PAGED DR TRAMMELL CONCERNING POSSIBLE NEED FOR PAIN MANAGEMENT
--- NOTE | 2017-06-24 12:27 | NUR ---
SPOKE TO DR LIND OFFICE WHO SAID THEY DID NOT KNOW IF VALERI WAS SEEING HIS PATIENTS AND TO CALL PHOTOGRAPHIC PRINTER , SPOKE WITH DR JOHN WITH NEW ORDERS FOR DILAUDID SUPERVISOR LANDSCAPE
--- NOTE | 2017-06-24 13:03 | NUR ---
PT EXTUBATED AT 1245 TOLERATED WELL, RESTRAINTS REMOVED, CHLORASEPTIC ORDERED FOR SORE THROAT, O2 3L NC APPLIED SPO2 98 AND HOLDING, BATH STEWARD INITITATED AND EXPLAINED TO PT WHO NODS IN UNDERSTANDING, FAMILY AT BEDSIDE FOR VISITATION AND PER PT REQUEST, SEEN BY DR BRIDGES, DENIES ANY FURTHER NEEDS, WILL CONTIUE TO MONITOR
--- NOTE | 2017-06-24 15:21 | NUR ---
PT REPOSTIIONED, ABLE TO ROLL SELF WITH MUCH ENCOURAGEMENT, USES FLUTTER AND IS WITH MUCH ENCOURAGEMENT NEEDED, EXPLAINED IMPORTANCE OF DEEP BREATHING, IS AND FLUTTER AND REPOSITIONING AND PT STATES UNDERSTANDING, PT USING EMBEDDED NURSE WITH NO ISSUES, CONTINUES COMPLAINTS OF SORE THROAT, USED CHLORASEPTIC SPRAY AND DR BRIDGES AWARE, ENCOURAGED PT TO REST VOICE THOUGH PT CONTINUALLY ATTEMPTS TO TALK, DENIES ALL NEEDS AT THIS TIME, VSS, CALL LIGHT, SUCTION AND EMBEDDED NURSE BUTTON WITHIN REACH, WITHIN SIGHT OF NURSES STATION, WILL CO UDAY TO MONITOR
--- NOTE | 2017-06-24 17:02 | NUR ---
PT RESTING COMFORTABLY IN BED, USES BRAND AMBASSADOR PROMOTIONAL MODEL, FAMILY IN FOR VISITATION BUT LEFT WHEN NOTED PT SLEEPING, VSS, NO NEEDS NOTED
--- NOTE | 2017-06-24 18:27 | NUR ---
PT NOTED TO HAVE RED ON FRONT OF GOWN, MIDLINE DRESSING NOTED TO HAVE QUARTER SIZE OF BRIGHT RED BLOOD, QUESTIONED PT ON IF SHE HAD COUGHED OR SCRATCHED AND SHE STATED SHE HAD SCRATCHED THE INCISION, ENCOURAGED NOT TO SCRATCH THOUGH IT MAY ITCH IT HEALS, DRESSING REMOVED AND ALL MARGARETH INTACT, WOUND EDGES WELL APPROXIMATED, SITE CLEANSED AND NEW DRESSING REAPPLIED
--- NOTE | 2017-06-24 19:00 | NUR ---
ASSESSMENT COMPLETED. SEE FLOW SHEETS FOR ALL FINDINGS. PT AWAKE WATCHING TV, C/O DISCOMFORT AT INCISION SITE. ON SITE SERVICES SPECIALIST IN USE PER PATIENT. REPOSITIONED FOR COMFORT. ST ON CM WITH HR TO 118, LUNG SOUNDS DIMINISHED TO LLB, UNLABORED, ON 3L VIA NC. ABD MIDLINE AND LOWER INCISION DRESSING C,D,I. LEFT AND RIGHT RAMOS DRAINS INTACT AND COMMPRESED. MAJANO INTACT TO GRAVITY WITH CLEAR/ YELLOW DRAINAGE TO BAG. PPP. CALL LIGHT IN REACH. CONT TO MONITOR.
--- NOTE | 2017-06-24 20:15 | NUR ---
FAMILY AT BEDSIDE. UPDATED AND QUESTIONS ANSWERED.
--- NOTE | 2017-06-24 23:00 | NUR ---
REASSESSMENT COMPLETED. SEE FLOW SHEETS FOR ALL FINDINGS. PT AWAKEN EASILY WITH VOICES. NO ACUTE SIGNS OF DISTRESS NOTED AT THIS TIME. CONT USE OF CONTACT CENTER ASSISTANT FOR ABD DISCOMFORT. REPOSITIONED FOR COMFORT. HOB UP. SIDE RAILS UP. CALL LIGHT IN REACH. CONT TO MONITOR.
[2017-06-25] VITALS (25 sets, daily range): BP systolic 125–180; BP diastolic 79–106
--- NOTE | 2017-06-25 01:00 | NUR ---
PT RESTING QUIETLY WITHOUT DISTRESS. VSS NO NEEDS VOICES AT THIS TIME. CALL LIGHT IN REACH. CPOC.
--- NOTE | 2017-06-25 03:00 | NUR ---
REASSESSMENT COMPLETED. SEE FLOW SHEETS FOR ALL FINDINGS. PT AWAKE C/O DISCOMFORT AT INCISION SITE WITH COUGHING. SCIENCE INTERN IN USE FOR PATIENT. REPOSITOINED FOR COMFORT. CALL LIGHT IN REACH. CPOC.
--- NOTE | 2017-06-25 04:00 | NUR ---
CXR TECH AT BEDSIDE. PT REFUSED XR AT THIS TIME. ASKED TECH TO COME LATER. WILL RETRY WITHEEN A HOUR.
[2017-06-25 04:38] LABS: BASOPHILS 0.2 % (0-2); EOSINOPHILS 0.6 % (0-7); HEMATOCRIT 31.5 % (36.0-48.0); IMMATURE GRANULOCYTES 2.3 % (0-5); LYMPHOCYTES 7.7 % (15-50); MCH 29.5 pg (26.0-34.0); MCHC 34.9 g/dL (31.0-37.0); MCV 84.5 fL (80.0-100.0); MEAN PLATELET VOLUME 10.3 fL (7.4-10.4); MONOCYTES 3.1 % (2-11); NEUTROPHILS 86.1 % (40-80); PLATELET COUNT 354 10x3/uL (130-400); RBC 3.73 10x6/uL (4.00-5.40); RDW 15.1 % (11.5-14.5); WBC 24.5 10x3/uL (4.8-10.8)
[2017-06-25 04:55] LABS: ALBUMIN 1.3 g/dL (3.4-5.0); BILIRUBIN - TOTAL 4.78 mg/dL (0.2-1.3); CALCIUM 8.1 mg/dL (8.5-10.1); CARBON DIOXIDE 22.1 mmol/L (21.0-32.0); CREATININE - SERUM 7.5 mg/dL (0.6-1.3); MAGNESIUM - SERUM 2.8 mg/dL (1.8-2.4); PROTEIN - SERUM 5.9 g/dL (6.4-8.2); VANCOMYCIN - RANDOM 11.4 ug/mL (10.0-20.0)
[2017-06-25 05:06] LABS: ANION GAP 21.4 mmol/L (8-16); PHOSPHOROUS 6.7 mg/dL (2.5-4.9); POTASSIUM - SERUM 4.5 mmol/L (3.5-5.1)
--- NOTE | 2017-06-25 07:00 | NUR ---
REC'D REPORT ABND REUMED CARE, AAO, O2 VIA NC AT 2L, SAT 88%, AFIB SHOWING ON MONITOR, NGT TO LIWS, GREEN DRAINAGE TO CANISTER, MAJANO TO GRAVITY WITH CLEAR YELLOW DRAINAGE TO BAG, BATH AND LINEN CHANGE PRE SURGERY, SCD'S PLACED ON LOWER EXTREMETIES, TOLERATED WITHOUT DIFFICULTY, DENTURES OUT AND AT BEDSIDE, ASSESSMENT COMPLETE PER FLOWSHEET
--- NOTE | 2017-06-25 07:00 | NUR ---
REC'D REPORT AND RESUMED CARE, AWAKE AND ALERT, MOANING, STATES HUNGRY, NPO ORDER IN USE, O2 VIA NC AT 3L, SAT 98%, LT NARE NGT TO LIWS, GREEN DRAINAGE TO CANISTER, RIGHT IJ TRIALYSIS WITH IVF PER IV FLOWSHEET, COMPENSATION INTERN DILAUDID IN USE C/O PAIN 10/26, COMPENSATION INTERN ENCOURAGED, ABDOMEN WITH MIDLINE DRESSING CDI, RAMOS X2 B/L. BLOODY DRAINAGE TO COLLASPED BULBS, MAJANO TO GRAVITY WITH PRASANNA DRAINAGE TO BAB, SCD'S B/L, ASSESSMENT COMPLETE PER FLOWSHEET,
--- NOTE | 2017-06-25 08:20 | NUR ---
TO SURGERY VIA BED WITH PERSONNEL X2, AAO, NO SIGNS OF DISTRESS
--- NOTE | 2017-06-25 08:30 | NUR ---
DR IRWIN CALLED, ORDER GOR POPSICLES AND ICE CHIPS GIVEN
--- NOTE | 2017-06-25 09:15 | NUR ---
AM MEDS GIVEN
--- NOTE | 2017-06-25 10:50 | NUR ---
CALLED TO ROOM, POPSICLE AND ICE CHIPS REQUESTED TO BEDSIDE
--- NOTE | 2017-06-25 10:50 | NUR ---
CALLED TO ROOM TO TURN FAN ON
--- NOTE | 2017-06-25 11:00 | NUR ---
NO ACUTE CHANGE FROM PREVIOUS ASSESSMENT
--- NOTE | 2017-06-25 11:10 | NUR ---
CALLED TO ROOM TO TURN FAN OFF
--- NOTE | 2017-06-25 13:21 | NUR ---
CALLED TO ROOM, REQUESTING THROAT SPRAY, CHLORASEPTIC SPRAY TO BEDSIDE
--- NOTE | 2017-06-25 14:46 | NUR ---
NUTRITION F/U LABS REVIEWED. PT EXTUBATED, DIPRIVAN OFF. 20% INTRALIPIDS ADDED. IV FLUID AT 100 CC/HR. WILL START TPN @ 40 CC/HR. MONITOR LABS AND ADJUST ELECTROLYTES NEEDED. INCREASE TPN RATE, ADJUST IV FLUIDS WHEN BUN AND CREATINE TREND DOWN. LABS ORDERED FOR NEXT TWO DAYS BY NEPHROLOGY. RD FOLLOWING
--- NOTE | 2017-06-25 16:15 | NUR ---
FAMILY AT BEDSIDE, STATUS UPDATED, ICE CHIPS AND POPSICLE TO BEDSIDE, NO OTHER NEEDS AT THIS TIME
--- NOTE | 2017-06-25 16:36 | NUR ---
DR KYES AT BEDSIDE FOR EVAL, NO NEW ORDERS AT THIS TIME, IS IN USE, 1000 OBTAIN, FLUTTER VALVE USED,
--- NOTE | 2017-06-25 19:20 | NUR ---
SHIFT ASSESSMENT COMPLETED. SEE ASSESSMENT FLOWSHEET. C/O PAIN TO ABD. DISTRICT RECRUITER IN USE-DILAUDID 0.2MG Q 10 MINUTES WITH 4MC 4 HOUR LOCKOUT. ASKING FOR MORE POPSICLES AND ICE. OBLIGED.
--- NOTE | 2017-06-25 21:00 | NUR ---
FAMILY AT BEDSIDE. UPDATE GIVEN. WILL MONITOR.
--- NOTE | 2017-06-25 22:00 | NUR ---
FAMILY AT BEDSIDE. INFORMED OF VISITATION ENDING. 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 NEAR END. WILL MONITOR.
[2017-06-26] VITALS (19 sets, daily range): BP systolic 134–170; BP diastolic 84–105
--- NOTE | 2017-06-26 | NUR ---
O2 SENSOR OFF FINGER. REPLACED. ORIENTED EXCEPT TO TIME OF DAY.
--- NOTE | 2017-06-26 00:20 | NUR ---
REASSESSMENT COMPLETED. SEE ASSESSMENT FLOWSHEET. ICE GIVEN PER REQUEST. SUCTION CANNISTER CHANGED OUT 600ML OF GREENISH COLORED GASTRIC DRAINAGE NOTED. RAMOS DRAIN ON LEFT LOWER ABDOMEN- NUMBER 2-EMPTIED. FSBS ASSESSED, [id number] ON TPN. WILL MONITOR.
--- NOTE | 2017-06-26 01:30 | NUR ---
POPSICLE GIVEN PER REQUEST.
--- NOTE | 2017-06-26 03:30 | NUR ---
PORTABLE CHEST XRAY COMPLETED. MOANED WHEN BARELY TOUCHED. PULLED UP IN BED AND TURNED TO RT SIDE. REASSESSMENT COMPLETED. SEE ASSESSMENT FLOWSHEET. WILL MONITOR.
[2017-06-26 04:18] LABS: BASOPHILS 0.2 % (0-2); EOSINOPHILS 0.3 % (0-7); HEMOGLOBIN 11.5 g/dL (12-16); IMMATURE GRANULOCYTES 4.9 % (0-5); LYMPHOCYTES 5.2 % (15-50); MCH 29.9 pg (26.0-34.0); MCHC 34.8 g/dL (31.0-37.0); MCV 85.9 fL (80.0-100.0); MEAN PLATELET VOLUME 10.3 fL (7.4-10.4); NEUTROPHILS 85.4 % (40-80); PLATELET COUNT 414 10x3/uL (130-400); RBC 3.84 10x6/uL (4.00-5.40); RDW 15.3 % (11.5-14.5); WBC 25.5 10x3/uL (4.8-10.8)
[2017-06-26 04:28] LABS: ALBUMIN 1.4 g/dL (3.4-5.0); ANION GAP 16.8 mmol/L (8-16); BILIRUBIN - TOTAL 3.48 mg/dL (0.2-1.3); CARBON DIOXIDE 22.6 mmol/L (21.0-32.0); CREATININE - SERUM 7.1 mg/dL (0.6-1.3); MAGNESIUM - SERUM 2.8 mg/dL (1.8-2.4); PHOSPHOROUS 6.5 mg/dL (2.5-4.9); POTASSIUM - SERUM 4.4 mmol/L (3.5-5.1); PROTEIN - SERUM 6.1 g/dL (6.4-8.2)
--- NOTE | 2017-06-26 04:30 | NUR ---
AT BEDSIDE. CAME OUT TO NURSES' STATION TO ASK FOR POPSICLES AND ICE CHIPS. WILL OBTAINED. WILL CONTINUE TO MONITOR.
--- NOTE | 2017-06-26 05:17 | NUR ---
LEFT BEDSIDE DUE TO PATIENT "FALLING ASLEEP". EYES CLOSED. LIGHT IN ROOM TURNED OFF. WILL MONITOR.
--- NOTE | 2017-06-26 05:52 | NUR ---
AWOKE FROM BEEPING IV PUMP. WANTED TO TALK TO . OBTAINED FROM WAITING ROOM TO COME BACK TO ROOM BRIEFLY. O2 CANUNLA NOT IN NARES, O2 SAT 97%. WILL SEE HOW SHE DOES WITHOUT O2. WILL MONITOR.
--- NOTE | 2017-06-26 12:45 | NUR ---
TO ROOM 2219 FROM ICU VIA BED.PT WITHOUT DISTRESS.FAMILY AT BEDSIDE.CALL LIGHT IN REACH
[2017-06-27] VITALS: BP 155/83
--- NOTE | 2017-06-27 02:17 | NUR ---
RN NOTE: PT RESTING IN HIGH RACHEL'S POSITION WITH EYES CLOSED. RIGHT IJ PATENT WITH NS INFUSING AT KVO; ZOFRAN INFUSING AT 4.7; BICARB INFUSING AT 60 ML / HR; TPN INFUSING AT 4O ML/HR, AND A GUARD DANCE HALL WITH DILAUDID FOR PAIN CONTROL. MAJANO CATHETER DRAINING TO GRAVITY WITH YELLOW URINE IN COLLECTION BAG. NG TUBE IN LEFT NARE TO LIS. FAMILY MEMBER IS AT BEDSIDE. WILL CONTINUE TO MONITOR FOR NEEDS. CALL LIGHT WITHIN REACH.
[2017-06-27 04:00] VITALS: BP 147/90
[2017-06-27 05:53] LABS: BASOPHILS 0.1 % (0-2); EOSINOPHILS 0.2 % (0-7); HEMATOCRIT 29.8 % (36.0-48.0); HEMOGLOBIN 10.4 g/dL (12-16); IMMATURE GRANULOCYTES 3.9 % (0-5); LYMPHOCYTES 7.8 % (15-50); MCH 29.9 pg (26.0-34.0); MCHC 34.9 g/dL (31.0-37.0); MCV 85.6 fL (80.0-100.0); MEAN PLATELET VOLUME 10.4 fL (7.4-10.4); MONOCYTES 3.6 % (2-11); NEUTROPHILS 84.4 % (40-80); PLATELET COUNT 443 10x3/uL (130-400); RBC 3.48 10x6/uL (4.00-5.40); RDW 15.7 % (11.5-14.5); WBC 20.3 10x3/uL (4.8-10.8)
[2017-06-27 06:09] LABS: ANION GAP 16.5 mmol/L (8-16); CALCIUM 8.1 mg/dL (8.5-10.1); CREATININE - SERUM 7.2 mg/dL (0.6-1.3); MAGNESIUM - SERUM 2.4 mg/dL (1.8-2.4); PHOSPHOROUS 6.2 mg/dL (2.5-4.9); POTASSIUM - SERUM 4.5 mmol/L (3.5-5.1); PROTEIN - SERUM 6.1 g/dL (6.4-8.2); VANCOMYCIN - RANDOM 16.1 ug/mL (10.0-20.0)
[2017-06-27 06:10] LABS: ALBUMIN 2.1 g/dL (3.4-5.0)
--- NOTE | 2017-06-27 08:00 | NUR ---
ASSESSMENT PER FLOW SHEET.PT WITHOUT DISTRESS.CALL LIGHT IN REACH
[2017-06-27 11:04] VITALS: BP 154/92
[2017-06-27 13:32] VITALS: BP 169/98
--- NOTE | 2017-06-27 18:59 | NUR ---
RESTING WITHOUT DISTRERSS.REMAINS WITHOUT CHANGE.CONT PLAN OF CARE
[2017-06-27 20:00] VITALS: BP 179/93
--- NOTE | 2017-06-27 23:06 | NUR ---
PATIENT GIVEN ATIVAN TO HELP WITH ANXIETY, PAIN TO ABDOMEN REPORTED TO BE AROUND A 5. LEFT SIDE RAMOS DRAIN CLEARED TWICE WITH AN OUTPUT SO FAR OF 215mL OF SEROUS FLUID. SUCTION CANISTER CHANGED OUT. ICE CHIPS AND POPCICLES WERE TAKEN AWAY DUE TO OVER INDULGENCE OF USAGE, 1.5 CUPS AND HOUR AND 1-2 POPCICLES WITH IT. ORAL CLEANING KIT GIVEN TO DAUGHTER AND VERBALLY INSTRUCTED HOW TO USE IT.
--- NOTE | 2017-06-27 23:44 | NUR ---
PATIENT HAVING VISUAL AND AUDITORY HALUCINATIONS
--- NOTE | 2017-06-28 03:15 | NUR ---
ENTERIC ISOLATION PRECAUTIONS OBSERVED. NG TUBE. PT RESTING QUIETLY. DAUGHTER AT BEDSIDE. RESP EVEN, UNLABORED. NO DISTRESS NOTED. CONTINUE GLUE MACHINE OPERATOR'S PLAN OF CARE.
[2017-06-28 04:00] VITALS: BP 189/92
[2017-06-28 05:08] LABS: BASOPHILS 0.1 % (0-2); EOSINOPHILS 0.1 % (0-7); HEMATOCRIT 29.8 % (36.0-48.0); HEMOGLOBIN 10.3 g/dL (12-16); IMMATURE GRANULOCYTES 3.8 % (0-5); LYMPHOCYTES 4.3 % (15-50); MCH 29.9 pg (26.0-34.0); MCHC 34.6 g/dL (31.0-37.0); MCV 86.6 fL (80.0-100.0); MEAN PLATELET VOLUME 10.5 fL (7.4-10.4); MONOCYTES 4.9 % (2-11); NEUTROPHILS 86.8 % (40-80); PLATELET COUNT 457 10x3/uL (130-400); RBC 3.44 10x6/uL (4.00-5.40); RDW 15.6 % (11.5-14.5); WBC 22.8 10x3/uL (4.8-10.8)
[2017-06-28 05:19] LABS: ANION GAP 17.9 mmol/L (8-16); CALCIUM 8.5 mg/dL (8.5-10.1); CARBON DIOXIDE 24.1 mmol/L (21.0-32.0); MAGNESIUM - SERUM 2.6 mg/dL (1.8-2.4); VANCOMYCIN - RANDOM 12.2 ug/mL (10.0-20.0)
--- NOTE | 2017-06-28 07:20 | NUR ---
REPORT RECEIVED FROM DRYWALL FINISHER NURSE. CALL LIGHT IN REACH.
--- NOTE | 2017-06-28 09:20 | NUR ---
ASSESSMENT COMPLETED. DAUGHTER IN ROOM. SOME IV TUBING CHANGED PER HOSPITAL PROTOCOL. CALL LIGHT IN REACH. WILL CONTINUE WITH PLAN OF CARE.
--- NOTE | 2017-06-28 09:25 | NUR ---
NUTRITION F/U LABS REVIEWED, NA+ REMOVED FROM TPN. LABS ORDERED FOR AM. RD FOLLOWING
[2017-06-28 09:57] VITALS: BP 142/78
--- NOTE | 2017-06-28 11:11 | NUR ---
LOVENOX SUBQ TO RLQ. NGT OFF SO FLORAJEN CAN BE GIVEN.
[2017-06-28 12:57] VITALS: BP 134/75
--- NOTE | 2017-06-28 13:23 | NUR ---
PT HERE FOR VOLVULUS FOR THIS VISIT PT DENIES NEEDS AT THIS TIME WILL CONTINUE TO MONITOR
--- NOTE | 2017-06-28 13:55 | NUR ---
PT IN ROOM TO SIT PATIENT IN CHAIR.
--- NOTE | 2017-06-28 15:30 | NUR ---
DR. KEYS IN ROOM TO SEE PATIENT.
--- NOTE | 2017-06-28 16:23 | NUR ---
REST OF IV TUBING CHANGED. WAITING FOR ROOM 2201 TO GET CLEANED TO MOVE PATIENT.
[2017-06-28 16:31] VITALS: BP 161/93
--- NOTE | 2017-06-28 18:15 | NUR ---
NO CHANGES IN INITIAL ASSESSMENT. CALL LIGHT IN REACH. FAMILY IN ROOM. WILL CONTINUE WITH PLAN OF CARE.
[2017-06-28 20:00] VITALS: BP 176/102
[2017-06-29] VITALS (10 sets, daily range): BP systolic 104–190; BP diastolic 59–99
[2017-06-29 06:42] LABS: BASOPHILS 0.2 % (0-2); EOSINOPHILS 0.3 % (0-7); HEMATOCRIT 30.3 % (36.0-48.0); HEMOGLOBIN 10.1 g/dL (12-16); IMMATURE GRANULOCYTES 2.3 % (0-5); LYMPHOCYTES 6.4 % (15-50); MCH 29.9 pg (26.0-34.0); MCHC 33.3 g/dL (31.0-37.0); MCV 89.6 fL (80.0-100.0); MEAN PLATELET VOLUME 10.8 fL (7.4-10.4); MONOCYTES 4.1 % (2-11); NEUTROPHILS 86.7 % (40-80); PLATELET COUNT 486 10x3/uL (130-400); RBC 3.38 10x6/uL (4.00-5.40); RDW 16.3 % (11.5-14.5); WBC 21.9 10x3/uL (4.8-10.8)
[2017-06-29 06:49] LABS: ANION GAP 16.8 mmol/L (8-16); CALCIUM 8.1 mg/dL (8.5-10.1); CARBON DIOXIDE 24.2 mmol/L (21.0-32.0); CREATININE - SERUM 6.6 mg/dL (0.6-1.3); MAGNESIUM - SERUM 2.3 mg/dL (1.8-2.4); PHOSPHOROUS 6.7 mg/dL (2.5-4.9); VANCOMYCIN - RANDOM 23.9 ug/mL (10.0-20.0)
--- NOTE | 2017-06-29 06:57 | NUR ---
PAGED DR. IRWIN IN REGARDS TO CRITICAL LAB RESULTS
--- NOTE | 2017-06-29 09:20 | NUR ---
AWAKE AND ALERT. ORIENTED X3. NO C/O AT THIS TIME. LUNGS ARE CLEAR BILATERALLY, NO COUGH NOTED. SKIN IS INTACT WIHTOUT REDNESS EXCEPT INCISION TO MID ABDOMEN WHICH IS CLEAN, DRY WITH CLIPS INTACT. RAMOS TO EACH SIDE OF ABDOMEN WITH SEROUS SANQUINESS DRAINAGE. MAJANO PATENT WITH CLEAR YELLOW URINE. NG TO LEFT NARE PATENT WITH GREENISH DISCHARGE. SL TO LEFT WRIST IS PATENT WITHOUT REDNESS AT INSERTION SITE. RIGHT IJ PATENT WITHOUT REDNESS AT INSERTION SITE. FAMILY IN ROOM.
--- NOTE | 2017-06-29 10:00 | NUR ---
UP TO CHAIR PER PT. DENIES NEEDS.
--- NOTE | 2017-06-29 11:03 | NUR ---
NUTRITION F/U CHART REVIEWED. SPOKE WITH MD. ADDED NURSING MESSAGE TO HOLD TPN FOR 24 HOURS. CONTACTED PHARMACY ABOUT SAME. ORDERED AM LABS. RD FOLLOWING
--- NOTE | 2017-06-29 12:00 | NUR ---
FSBS 125. NO COVERAGE REQUIRED. FAMILY AT BEDSIDE.
--- NOTE | 2017-06-29 12:15 | EC ---
PATIENT:ALLEN MELTON DATE OF SERVICE: 06/09/17 SEX: F MEDICAL RECORD: [id number] DATE OF : 74 LOCATION:D.[facility] AGE OF PATIENT: 47 ADMISSION DATE: 06/09/17 REFERRING PHYSICIAN: INTERPRETING PHYSICIAN: LOGAN MEJIA MD ECHOCARDIOGRAM REPORT ECHO CHARGES 4 ECHO COMPLETE CLINICAL DIAGNOSIS: TACHYCARDIA ECHOCARDIOGRAPHIC MEASUREMENTS (adult normal given) AC root (d.<3.7cm) 3.8 cm LV Septum d (<1.2 cm> 1.8 cm Valve Excursion 1.9 cm LV Septum (systole) 2.2 cm Left Atria (s.<4.0cm> 3.7 cm LVPW d(<1.2cm) 1.9 cm RV (d.<2.3cm) 2.8 cm LVPW (sytole) 2.2 cm LV diastole(<5.6CM) 4.6 cm MV E-F(>70mm/sec) cm LV systole 2.8 cm LVOT Diameter 1.8 cm MV exc.(>10mm) 1.5 cm Est.ejection fraction (50-75%) % Pericardial Effusion Y DOPPLER: LVIT cm/sec A 77.0 cm/sec E 45.0 cm/sec LA cm/sec RVSP 33 mmHg LVOT 136 cm/sec AOP1/2T m/s Asc. Ao 227 cm/sec RVOT 138 cm/sec RA cm/sec PA 169 cm/sec AV Gradient Peak 20.35mmHg AV Mean 12.76mmHg AV Area 1.4 cm MV Gradient Peak 4.67 mmHg MV Mean 2.32 mmHg MV Area cm COMMENTS: Anthropology Faculty Member: Bebeto MCLAUGHLIN Foreign Exchange Dealer: 1 Dr. Mejia TAPE# PACS DATE OF SERVICE: 06/22/2017 FINDINGS: 1. Left ventricular chamber size is within normal limits. Left ventricular systolic function is normal. Overall ejection fraction estimated at 60%. 2. Left atrium, right atrium, and right ventricular chamber sizes are within normal limits. 3. Valvular structures have normal structure and motion. 4. Doppler interrogation reveals mild tricuspid regurgitation only. No other valvular insufficiency or stenosis. Pulmonary systolic pressure estimated at 33 ECHOCARDIOGRAM REPORT [id number] ALLEN MELTON mmHg. 5. Trace pericardial effusion is present. This is not hemodynamically significant. TRANSINT:[id number] Voice Confirmation ID: [id number] DOCUMENT ID: [id number] LOGAN MEJIA MD at 1215 CC: [id number] DICTATION DATE: 06/23/17 110 MEDICAL TECHNOLOGIST MICROBIOLOGY: 06/23/17 1240 ADM IN [facility] [address] [place] [address]
--- NOTE | 2017-06-29 12:15 | CN ---
PATIENT NAME:ALLEN CORTES MEDICAL RECORD: [id number] : 74 LOCATION:D.[facility] ADMIT DATE: 06/09/17 ACCOUNT: [id number] CONSULTING PHYSICIAN: LOGAN MULLEN MD REFERRING PHYSICIAN: HERNAN TRAMMELL MD DATE OF CONSULTATION: 06/22/2017 CARDIOLOGY CONSULTATION DATE OF SERVICE: 06/22/2017 DIAGNOSES: 1. Tachycardia. 2. Hypotension. 3. Status post gastrointestinal surgery. 4. Acute renal failure. HISTORY OF PRESENT ILLNESS: Ms. Cortes presents with volvulus. She has undergone belly surgery times 2. After her last surgery, she had hemoglobin of 6.8. This has since been replaced, but she remains tachycardic in the 130 range, it is sinus tachycardia. A 12-lead ECG is with no ST-T changes. She is in renal failure as well with a creatinine of 7.2, this is acute renal failure. She does have no cardiac history. PHYSICAL EXAMINATION: GENERAL APPEARANCE: The patient is intubated and sedated. PSYCHIATRIC: Mental status, alert, normal affect. Orientation, oriented to time, place and person. EYES: Lids and conjunctiva, noninjected. No discharge, no pallor. ENT: Lips, teeth, gums, normal dentition. Oropharynx, no cyanosis, no pallor. NECK: Carotid arteries, bilateral normal upstroke, no bruits, no thrills. JUGULAR VEINS: No jugular venous pressure or distention. CERVICAL LYMPH NODES: Nontender, nonenlarged. THYROID: Not enlarged. Nontender. No nodules. LUNGS: Respiratory effort, unlabored. CHEST: Normal curvature. No thoracic deformity. No chest wall tenderness. Percussion, resonant. Auscultation, clear. No wheezes, no rales, no rhonchi. CARDIOVASCULAR: She is tachycardic, regular. EXTREMITIES: No cyanosis, no edema. Peripheral pulses, full and equal in all extremities, except as noted. No bruits appreciated. ABDOMEN: Soft, nondistended. Normal aorta. No bruit. Nontender. No masses. Liver, nontender, no hepatomegaly. Spleen, nontender, no splenomegaly. MUSCULOSKELETAL: No joint tenderness. No joint swelling. No erythema. NEUROLOGICAL: Normal gait, normal strength, normal tone. SKIN: Warm and dry. OVERALL IMPRESSION: Tachycardia, this is physiologically appropriate for what is going on with her. At this time, no other cardiac workup or treatment is necessary. However, we will get an echocardiogram. TRANSINT:[id number] Voice Confirmation ID: [id number] DOCUMENT ID: [id number] CONSULT REPORT [id number] ALLEN CORTES JEFFREY MD at 1215 CC: [id number] DICTATION DATE: 06/22/17900 CONTRACT ATTORNEY: 06/22/17 1103 ADM IN [facility] [id number] [place] [address]
--- NOTE | 2017-06-29 18:12 | NUR ---
NO CHANGES NOTED AT THIS TIME. DENIES NEEDS.
[2017-06-30 06:27] LABS: BASOPHILS 0 % (0-2); EOSINOPHILS 0.4 % (0-7); HEMATOCRIT 29.2 % (36.0-48.0); HEMOGLOBIN 9.7 g/dL (12-16); IMMATURE GRANULOCYTES 1.8 % (0-5); LYMPHOCYTES 3.8 % (15-50); MCH 29.8 pg (26.0-34.0); MCHC 33.2 g/dL (31.0-37.0); MCV 89.6 fL (80.0-100.0); MEAN PLATELET VOLUME 10.8 fL (7.4-10.4); MONOCYTES 7.3 % (2-11); NEUTROPHILS 86.7 % (40-80); PLATELET COUNT 480 10x3/uL (130-400); RBC 3.26 10x6/uL (4.00-5.40); RDW 16.4 % (11.5-14.5); WBC 21.7 10x3/uL (4.8-10.8)
[2017-06-30 06:32] LABS: ANION GAP 16.4 mmol/L (8-16); CALCIUM 8.2 mg/dL (8.5-10.1); CARBON DIOXIDE 22.6 mmol/L (21.0-32.0); CREATININE - SERUM 6.3 mg/dL (0.6-1.3); PHOSPHOROUS 7.1 mg/dL (2.5-4.9); VANCOMYCIN - RANDOM 16.3 ug/mL (10.0-20.0)
--- NOTE | 2017-06-30 08:30 | NUR ---
REC'D IN BED AWAKE AND ALERT. RESP EVEN AND UNLABORED WITH NO DISTRESS NOTED. CAN VOICE NEEDS AND WANTS. NG TUBE NOTED TO LEFT NARE. AT THIS TIME. C/O GENERALIZED PAIN RATING 9/10 ON PAIN. ASSESSMENT COMPLETED. FC INTACT AND DRAINING TO GRAVITY. REMAIN ON ENTERIC ISOLATION D/T C-DIFF. C/L IN REACH AT BEDSIDE.
--- NOTE | 2017-06-30 08:36 | NUR ---
REC'D IN BED AWAKE AND ALERT. RESP EVEN AND UNLABORED WITH NO DISTRESS NOTED. CAN EXPRESS NEEDS AND WANTS. ASSESSMENT COMPLETED. C/O PAIN RATING 9/10 ON PAIN SCALE TO RIGHT SIDE OF NECK. WAS MEDICATED WITH MORPHINE 2 MG PER ORDERS. WILL CONTINUE TO OBSERVE FOR NEEDS. C/L IN REACH AT BEDSIDE.
[2017-06-30 09:36] VITALS: BP 184/96
--- NOTE | 2017-06-30 10:45 | NUR ---
PT WAS GIVEN AND BOLUS OF DILAUDID AT THIS TIME.
--- NOTE | 2017-06-30 11:05 | NUR ---
NUTRITION F/U CHART REVIEWED. SPOKE WITH MD'S, PHARMACY, NURSING. RENEWED TPN ORDERS, SMALL AMT MAG ADDED TO ORDER. NEPHROLOGY WANTS TO CONTINUE D5 @ 150 CC/HR. ORDERED AM LABS. RD FOLLOWING
[2017-06-30 13:21] VITALS: BP 163/93
--- NOTE | 2017-06-30 14:43 | NUR ---
pt seen for meter tester note-manish bulb emptied with approx 110 cc clear yellow fluid removed. states pain control is good. family at bedside. ng present to nare. call light in reach
[2017-06-30 17:02] VITALS: BP 166/95
--- NOTE | 2017-06-30 19:50 | NUR ---
D5W WAS SETUP ON THE BLUE PORT OF THE TRIALYSIS LINE IN THE RIGHT JUGULAR. LINE WAS TAKEN OFF AND PLACED ON THE NURSING LINE. ENTRY WRITER WAS NOTIFED AND ASKED IF THERE WAS ANYTHING ELSE THAT NEEDED TO BE DONE BESIDES A NOTE. SHE SAID NO. DILADID SQL SERVER DEVELOPER BOLUS GIVEN FOR PAIN. SCD's ON. BED IN LOWEST LOCKED POSITION, CALL LIGHT WITHIN REACH, HOB ELEVATED. FAMILY AT BEDSIDE. NGT CLAMPED. NO NEEDS NOTED AT THIS TIME.
[2017-06-30 23:07] VITALS: BP 176/94
--- NOTE | 2017-07-01 03:00 | NUR ---
PATIENT IS RESTING QUIETLY WITH EYES CLOSED, NO SIGNS OF DISTRESS NOTED. FAMILY MEMBER AT BEDSIDE DENIES NEEDS. BED IN LOWEST POSITION, CALL LIGHT IN REACH. BED RIALS UP X'S 2. ENTERIC ISOLATION PRECAUTIONS MAINTAINED.
[2017-07-01 05:00] VITALS: BP 170/84
[2017-07-01 05:54] LABS: HEMATOCRIT 28.7 % (36.0-48.0); HEMOGLOBIN 9.5 g/dL (12-16); MCH 29.7 pg (26.0-34.0); MCHC 33.1 g/dL (31.0-37.0); MCV 89.7 fL (80.0-100.0); MEAN PLATELET VOLUME 11.1 fL (7.4-10.4); PLATELET COUNT 459 10x3/uL (130-400)
[2017-07-01 06:38] LABS: ANION GAP 14.8 mmol/L (8-16); CALCIUM 8.1 mg/dL (8.5-10.1); MAGNESIUM - SERUM 1.8 mg/dL (1.8-2.4); PHOSPHOROUS 6.7 mg/dL (2.5-4.9); POTASSIUM - SERUM 3.8 mmol/L (3.5-5.1); VANCOMYCIN - RANDOM 12.5 ug/mL (10.0-20.0)
[2017-07-01 06:44] LABS: HYPOCHROMASIA OCC; LYMPHOCYTES 10 % (15-50); MONOCYTES 5 % (2-11); NEUTROPHILS 81 % (40-80); PLATELET ESTIMATE INCREASED
[2017-07-01 08:33] VITALS: BP 178/103
--- NOTE | 2017-07-01 10:47 | NUR ---
NUTRIITON F/U LABS REVIEWED. RENEWED FOR AM. RD FOLLOWING
[2017-07-01 12:19] VITALS: BP 176/92
--- NOTE | 2017-07-01 13:02 | NUR ---
PT NOTE-UP IN CHAIR AT BEDSIDE. NO COMPLAINTS AT PRESENT. STATES IS FOR ANOTHER TEST TODAY. MOM AT BEDSIDE. CALL LIGHT IN REACH
--- NOTE | 2017-07-01 19:48 | NUR ---
SCOP PATCH PLACED BEHIND RIGHT EAR.
[2017-07-01 20:00] VITALS: BP 163/88
[2017-07-02 04:00] VITALS: BP 165/96
[2017-07-02 05:00] LABS: BASOPHILS 0.1 % (0-2); EOSINOPHILS 0.3 % (0-7); HEMATOCRIT 27.3 % (36.0-48.0); IMMATURE GRANULOCYTES 0.7 % (0-5); LYMPHOCYTES 3.5 % (15-50); MCH 29.9 pg (26.0-34.0); MCV 90.7 fL (80.0-100.0); MEAN PLATELET VOLUME 10.8 fL (7.4-10.4); MONOCYTES 5.6 % (2-11); NEUTROPHILS 89.8 % (40-80); PLATELET COUNT 414 10x3/uL (130-400); RBC 3.01 10x6/uL (4.00-5.40); RDW 15.9 % (11.5-14.5); WBC 27.2 10x3/uL (4.8-10.8)
[2017-07-02 05:15] LABS: ANION GAP 15.7 mmol/L (8-16); CALCIUM 7.8 mg/dL (8.5-10.1); CREATININE - SERUM 5.1 mg/dL (0.6-1.3); MAGNESIUM - SERUM 1.7 mg/dL (1.8-2.4); PHOSPHOROUS 6.1 mg/dL (2.5-4.9); POTASSIUM - SERUM 3.7 mmol/L (3.5-5.1); VANCOMYCIN - RANDOM 7.8 ug/mL (10.0-20.0)
--- NOTE | 2017-07-02 05:21 | NUR ---
REMAINS IN ISOLATION DROPLET. PT ASSESSED, SHE IS SLEEPING WELL WITH FAMILY AT THE BEDSIDE. FAMILY ARE AT THE BEDSIDE. SHE HAS A MAJANO TO KEEP HER SKIN FROM STAYING WET. THE BED IS LOW, RAILS UP X'S 2 WITH THE CALL LIGHT AT HAND.
[2017-07-02 07:11] VITALS: BP 168/98
--- NOTE | 2017-07-02 09:07 | NUR ---
NUTRITION F/U DC'D TPN PER MD ORDER. ADDED ENSURE TO MEALS. RD FOLLOWING
--- NOTE | 2017-07-02 10:34 | NUR ---
RIGHT TRIYLSIS CATHETER DRESSING CHANGED USING CURRENT PROTOCOL AND KIT. RIGHT RAMOS BULB OPEN-SUCTION DISCONTINUED-STITCH REMOVED AND DRAIN REMOVED. 4X4S AND TAPE TO SITE. TOLERATED DRAIN REMOVAL WITH SOME DISCOMFORT-USING HAIR SPINNER NEEDED. FAMILY AT BEDSIDE.
[2017-07-02 12:24] VITALS: BP 137/60
[2017-07-02 15:00] VITALS: BP 135/82
[2017-07-02 19:30] VITALS: BP 162/94
--- NOTE | 2017-07-02 19:45 | NUR ---
SITTING IN CHAIR WITH AT BEDSIDE, CALL LIGHT IN REACH, WILL CONTINUE TO MONITOR
[2017-07-02 23:30] VITALS: BP 140/76
[2017-07-03 03:30] VITALS: BP 155/88
--- NOTE | 2017-07-03 04:33 | NUR ---
ASSESSED, AWAKE AND NURSE IS ASSISITNG HER UP TO THE BATHROOM. FAMILY REMAINS AT THE BEDSIDE. RESPIRATIONS EASY AND PT IS ABLE TO USE BEDSIDE COMMODE. ISOLATION STILL IN PLACE. BED IS LOW, RAILS UP X'S 2 WITH THE CALL LIGHT AT HAND.
[2017-07-03 05:22] LABS: BASOPHILS 0.1 % (0-2); EOSINOPHILS 0.4 % (0-7); HEMATOCRIT 25.7 % (36.0-48.0); HEMOGLOBIN 8.4 g/dL (12-16); IMMATURE GRANULOCYTES 0.7 % (0-5); LYMPHOCYTES 4.6 % (15-50); MCH 29.7 pg (26.0-34.0); MCHC 32.7 g/dL (31.0-37.0); MCV 90.8 fL (80.0-100.0); MEAN PLATELET VOLUME 10.6 fL (7.4-10.4); MONOCYTES 6.6 % (2-11); NEUTROPHILS 87.6 % (40-80); PLATELET COUNT 399 10x3/uL (130-400); RBC 2.83 10x6/uL (4.00-5.40); RDW 15.9 % (11.5-14.5); WBC 23.1 10x3/uL (4.8-10.8)
[2017-07-03 05:32] LABS: CALCIUM 8.1 mg/dL (8.5-10.1); CARBON DIOXIDE 25.6 mmol/L (21.0-32.0); CREATININE - SERUM 4.4 mg/dL (0.6-1.3); MAGNESIUM - SERUM 1.7 mg/dL (1.8-2.4); POTASSIUM - SERUM 3.6 mmol/L (3.5-5.1); VANCOMYCIN - RANDOM 4.9 ug/mL (10.0-20.0)
[2017-07-03 07:34] VITALS: BP 150/86
[2017-07-03 15:01] VITALS: BP 159/95
[2017-07-03 15:38] LABS: BASOPHILS 0.1 % (0-2); EOSINOPHILS 0.3 % (0-7); HEMATOCRIT 25.8 % (36.0-48.0); HEMOGLOBIN 8.5 g/dL (12-16); IMMATURE GRANULOCYTES 0.5 % (0-5); MCHC 32.9 g/dL (31.0-37.0); MCV 91.2 fL (80.0-100.0); MEAN PLATELET VOLUME 10.7 fL (7.4-10.4); NEUTROPHILS 89.1 % (40-80); PLATELET COUNT 388 10x3/uL (130-400); RBC 2.83 10x6/uL (4.00-5.40); RDW 15.7 % (11.5-14.5); WBC 23.6 10x3/uL (4.8-10.8)
--- NOTE | 2017-07-03 15:42 | NUR ---
PT RESTING IN BED DENIES NEEDS.
[2017-07-03 15:52] LABS: ALBUMIN 2.1 g/dL (3.4-5.0); ANION GAP 11.2 mmol/L (8-16); BILIRUBIN - TOTAL 0.82 mg/dL (0.2-1.3); CALCIUM 8.2 mg/dL (8.5-10.1); CARBON DIOXIDE 25.3 mmol/L (21.0-32.0); POTASSIUM - SERUM 3.5 mmol/L (3.5-5.1); PROTEIN - SERUM 6.6 g/dL (6.4-8.2)
[2017-07-03 16:14] LABS: APPEARANCE SLT CLOUDY (CLEAR); COLOR YELLOW (YELLOW)
[2017-07-03 16:15] LABS: BILIRUBIN NEGATIVE (NEGATIVE); GLUCOSE 100 mg/dL (NEGATIVE); KETONE NEGATIVE (NEGATIVE); NITRITE NEGATIVE (NEGATIVE); PROTEIN TRACE mg/dL (NEGATIVE); SPECIFIC GRAVITY 1.005 (1.005-1.020); UROBILINOGEN NORMAL (NORMAL)
[2017-07-03 16:17] LABS: AMORPHOUS SEDIMENT <1+ /lpf (NONE SEEN); BACTERIA FEW /hpf (NONE SEEN); RED CELLS - URINE 0-5 /hpf (0-5)
[2017-07-03 16:24] LABS: MAGNESIUM - SERUM 2.1 mg/dL (1.8-2.4); PHOSPHOROUS 4.8 mg/dL (2.5-4.9)
--- NOTE | 2017-07-03 19:20 | NUR ---
REPORT COMPLETELY FROM DAY SHIFT.
[2017-07-03 19:30] VITALS: BP 155/79
--- NOTE | 2017-07-03 19:56 | NUR ---
EDUCATED PT'S FAMILY MEMBERS WEAR GOWN AND GLOVE FOR CONTACT ISOLATION, BEFORE GET INTO PT'S ROOM.
--- NOTE | 2017-07-03 20:10 | NUR ---
STAYS AT BEDSIDE WITH PT.
[2017-07-04] VITALS (7 sets, daily range): BP systolic 137–159; BP diastolic 80–93
--- NOTE | 2017-07-04 02:48 | NUR ---
REST IN BED, CALL LIGHT IN REACH.
--- NOTE | 2017-07-04 07:00 | NUR ---
PT REC'D FROM PT REC'D FROM MICHAEL MCLAIN. RESTING IN BED WITH AT BEDSIDE. AAOX4. CURRENT PAIN LEVEL IN ABD 5/10. WILL REASSESS. DRESSING TO R NECK TRIALYSIS CATHETER CDI. SECURED LINES BEHIND SHOULDER WITH TAPE. LUNG SOUNDS CLEAR AND EQUAL BILAT. REGULAR HEART RATE AND RHYTHM. TACHYCARDIC. BOWEL SOUNDS HYPOACTIVE X4 QUADS. ABD SOFT AND ROUND. TENDER TO PALPATION. MIDLINE ABD INCISION FREE OF DISCHARGE, REDNESS, AND SWELLING. DRESSING TO RLQ WHERE PREVIOUS DRAIN SITE WAS CDI. RAMOS DRAIN TO LLQ HAS APPROXIMATELY 30CC'S OF SEROUS FLUID. BULB COMPRESSED. REDNESS, PEELING, THICK WHITE DISCHARGE NOTED TO LABIA, AND SORES. [place] AREA CLEANED WTIH WIPES. BED LOW, CALL LIGHT IN REACH, DENIES NEEDS. CPOC.
[2017-07-04 08:13] LABS: BASOPHILS 0.1 % (0-2); EOSINOPHILS 0.6 % (0-7); HEMATOCRIT 23.4 % (36.0-48.0); HEMOGLOBIN 7.8 g/dL (12-16); IMMATURE GRANULOCYTES 0.3 % (0-5); LYMPHOCYTES 5.9 % (15-50); MCHC 33.3 g/dL (31.0-37.0); MEAN PLATELET VOLUME 10.2 fL (7.4-10.4); MONOCYTES 7.2 % (2-11); NEUTROPHILS 85.9 % (40-80); PLATELET COUNT 341 10x3/uL (130-400); RDW 15.8 % (11.5-14.5)
[2017-07-04 08:29] LABS: ANION GAP 12.3 mmol/L (8-16); BILIRUBIN - TOTAL 0.8 mg/dL (0.2-1.3); CALCIUM 8.1 mg/dL (8.5-10.1); CARBON DIOXIDE 23.2 mmol/L (21.0-32.0); CREATININE - SERUM 3.3 mg/dL (0.6-1.3); MAGNESIUM - SERUM 1.8 mg/dL (1.8-2.4); POTASSIUM - SERUM 3.5 mmol/L (3.5-5.1); PROTEIN - SERUM 6.4 g/dL (6.4-8.2)
--- NOTE | 2017-07-04 10:40 | NUR ---
PATIENT SITTING UP IN CHAIR AT THIS TIME WITH NO COMPLAINTS OR PROBLEMS. FAMILY AT BEDSIDE. CALL LIGHT WITHIN REACH.
--- NOTE | 2017-07-04 11:23 | NUR ---
YOUNGER LADY WITH POOR RENAL FUNCTION. DUE TO HER BIGGER SIZE, I BUMPED THE DOSE UP TO 1.5 GRAMS Q 24H. WILL GET A TROUGH AFTER 2 DOSES AND WILL ADJUST NEEDED. CONTINUE TO MONITOR RENAL FUNCTION, AND WILL ORDER VANCOMYCIN LEVELS NEEDED
--- NOTE | 2017-07-04 19:30 | NUR ---
a&o, family at bedside, call light in reach, from chair back to bed, denies needs, bed lowest posiiton, will continue to monitor
--- NOTE | 2017-07-04 23:42 | NUR ---
ENTERIC ISOLATION PRECAUTIONS OBSERVED. PT RESTING QUIETLY, EYES CLOSED. RESP EVEN, UNLABORED. NO DISTRESS NOTED. CONTINUE MEDICAL EQUIPMENT SALES'S PLAN OF CARE.
[2017-07-05 04:01] VITALS: BP 149/90
[2017-07-05 05:44] LABS: BASOPHILS 0.2 % (0-2); EOSINOPHILS 0.6 % (0-7); HEMATOCRIT 25.8 % (36.0-48.0); HEMOGLOBIN 8.4 g/dL (12-16); IMMATURE GRANULOCYTES 0.3 % (0-5); LYMPHOCYTES 6.2 % (15-50); MCH 29.9 pg (26.0-34.0); MCHC 32.6 g/dL (31.0-37.0); MCV 91.8 fL (80.0-100.0); MEAN PLATELET VOLUME 11.1 fL (7.4-10.4); MONOCYTES 8.3 % (2-11); NEUTROPHILS 84.4 % (40-80); PLATELET COUNT 405 10x3/uL (130-400); RBC 2.81 10x6/uL (4.00-5.40); RDW 15.8 % (11.5-14.5)
[2017-07-05 06:27] LABS: ANION GAP 13.1 mmol/L (8-16); CALCIUM 8.4 mg/dL (8.5-10.1); CARBON DIOXIDE 22.5 mmol/L (21.0-32.0); CREATININE - SERUM 2.6 mg/dL (0.6-1.3); MAGNESIUM - SERUM 1.7 mg/dL (1.8-2.4); PHOSPHOROUS 3.7 mg/dL (2.5-4.9); POTASSIUM - SERUM 3.6 mmol/L (3.5-5.1)
--- NOTE | 2017-07-05 07:41 | NUR ---
REPORT RECIEVED. PATIENT RESTING IN CHAIR. NO COMPLAINTS AT THIS TIME.
[2017-07-05 08:21] VITALS: BP 151/95
--- NOTE | 2017-07-05 12:27 | NUR ---
RESTING IN BED AT THIS TIME. AMBULATED IN HALLWAY WITH PT EARLIER. DENIES NEEDS.
[2017-07-05 13:24] VITALS: BP 154/84
[2017-07-05 16:07] VITALS: BP 152/91
[2017-07-05 20:00] VITALS: BP 141/73
[2017-07-06 04:00] VITALS: BP 140/81
[2017-07-06 05:35] LABS: BASOPHILS 0.2 % (0-2); HEMATOCRIT 22.4 % (36.0-48.0); IMMATURE GRANULOCYTES 0.2 % (0-5); LYMPHOCYTES 9.2 % (15-50); MCH 29.9 pg (26.0-34.0); MCHC 32.6 g/dL (31.0-37.0); MCV 91.8 fL (80.0-100.0); MEAN PLATELET VOLUME 11.2 fL (7.4-10.4); MONOCYTES 8.7 % (2-11); NEUTROPHILS 80.7 % (40-80); PLATELET COUNT 336 10x3/uL (130-400); RBC 2.44 10x6/uL (4.00-5.40); RDW 15.9 % (11.5-14.5); WBC 12.2 10x3/uL (4.8-10.8)
[2017-07-06 05:47] LABS: CALCIUM 7.8 mg/dL (8.5-10.1); CARBON DIOXIDE 27.2 mmol/L (21.0-32.0); CREATININE - SERUM 2.1 mg/dL (0.6-1.3); MAGNESIUM - SERUM 1.4 mg/dL (1.8-2.4); PHOSPHOROUS 3.2 mg/dL (2.5-4.9); POTASSIUM - SERUM 3.2 mmol/L (3.5-5.1)
[2017-07-06 06:10] LABS: HEMOGLOBIN 7.3 g/dL (12-16)
--- NOTE | 2017-07-06 06:27 | NUR ---
NOTIFIED BREVING OF CRITICAL LAB, SEE ORDERS.
[2017-07-06 07:10] VITALS: BP 144/80
[2017-07-06 10:58] VITALS: BP 147/81
[2017-07-06 15:01] VITALS: BP 154/75
[2017-07-06 20:00] VITALS: BP 143/79
--- NOTE | 2017-07-06 21:28 | NUR ---
REC'D SITTING UP ON SIDE OF BED. ALERT AND ORIENTED X4. DENIED PAIN AT THIS TIME. REPORTING DISCOMFORT IN ABD DUE TO GAS. NO DISTRESS NOTED. INSTRUCTED TO CALL IF NEEDED ANYTHING. BED LOW, LOCKED CALL LIGHT IN REACH. FAMILY IS AT BEDSIDE. WILL CONT TO MONITOR.
--- NOTE | 2017-07-07 00:39 | NUR ---
EYES CLOSED RESPIRATIONS WITH EASE AND UNLABORED. SR UP X2 CALL LIGHT WITHIN REACH. ISOLATION IN PROGRESS.
[2017-07-07 04:00] VITALS: BP 142/86
[2017-07-07 05:53] LABS: BASOPHILS 0.2 % (0-2); EOSINOPHILS 0.7 % (0-7); HEMATOCRIT 25.5 % (36.0-48.0); HEMOGLOBIN 8.3 g/dL (12-16); IMMATURE GRANULOCYTES 0.3 % (0-5); LYMPHOCYTES 7.5 % (15-50); MCH 29.4 pg (26.0-34.0); MCHC 32.5 g/dL (31.0-37.0); MCV 90.4 fL (80.0-100.0); MEAN PLATELET VOLUME 11.6 fL (7.4-10.4); MONOCYTES 8.9 % (2-11); NEUTROPHILS 82.4 % (40-80); PLATELET COUNT 314 10x3/uL (130-400); RBC 2.82 10x6/uL (4.00-5.40); RDW 15.9 % (11.5-14.5); WBC 12.7 10x3/uL (4.8-10.8)
[2017-07-07 06:35] LABS: ANION GAP 11.3 mmol/L (8-16); CARBON DIOXIDE 23.6 mmol/L (21.0-32.0); CREATININE - SERUM 1.8 mg/dL (0.6-1.3); MAGNESIUM - SERUM 1.7 mg/dL (1.8-2.4); POTASSIUM - SERUM 3.9 mmol/L (3.5-5.1)
--- NOTE | 2017-07-07 07:15 | NUR ---
REPORT RECEIVED, ASSUMED CARE OF PT. RESTING WITH EYES SHUT, EASILY AROUSED. FAMILY AT BEDSIDE. R IJ TRIALYSIS CATH INFUSING ORDERED, DRSG C/D/I. ABD RAMOS DRAIN COMPRESSED. NO NEEDS VOICED AT THIS TIME. BED IN LOWEST POSITION, SIDE RAILS UP X 2, CALL LIGHT WITHIN REACH.
[2017-07-07 08:08] VITALS: BP 157/96
[2017-07-07 13:08] VITALS: BP 152/89
[2017-07-07 16:02] VITALS: BP 135/75
[2017-07-07 20:00] VITALS: BP 157/87
--- NOTE | 2017-07-07 21:58 | NUR ---
REC'D LYING IN BED. ALERT AND ORIENTED X4. DENIED PAIN AT THIS TIME. NO DISTRESS NOTED. INSTRUCTED TO CALL IF NEEDED ANYTHING, VERBALIZED UNDERSTANDING. FAMILY IS AT BEDSIDE. WILL CONT TO MONITOR. BED LOW, LOCKED, CALL LIGHT IN REACH.
--- NOTE | 2017-07-07 22:36 | NUR ---
GAVE KIP CHÁVEZ APPRESOLINE TO GIVE AT 2114. AWAITING HER TO GIVE. BP IS 157/85, PULSE 109. GAVE HER THE VIALS WELL.
--- NOTE | 2017-07-08 00:50 | NUR ---
REMOVED RAMOS DRAIN FROM LEFT SIDE OF ABDOMEN. PT TOLERATED WELL. REMOVED ZOFRAN DRIP AND RECORD RETRIEVAL SPECIALIST FROM ROOM. IS GOING TO PO ZOFRAN AND PO DILAUDID. REMOVED SUTURE AND COVERED WITH 4X4. INSIDE OF NAVEL HAS SOME YELLOW BLOOD TINGED DRAINAGE. CLEANED UP WITH GAUAZE AND WILL KEPT AN EYE OUT. WILL PASS ON TO DAY SHIFT ABT NAVEL. 75CC LEFT IN RAMOS DRAIN.
[2017-07-08 04:00] VITALS: BP 142/76
[2017-07-08 05:01] LABS: BASOPHILS 0.2 % (0-2); EOSINOPHILS 0.4 % (0-7); HEMATOCRIT 25.3 % (36.0-48.0); HEMOGLOBIN 8.3 g/dL (12-16); IMMATURE GRANULOCYTES 0.3 % (0-5); LYMPHOCYTES 8.4 % (15-50); MCH 29.5 pg (26.0-34.0); MCHC 32.8 g/dL (31.0-37.0); MEAN PLATELET VOLUME 10.7 fL (7.4-10.4); MONOCYTES 6.1 % (2-11); NEUTROPHILS 84.6 % (40-80); PLATELET COUNT 305 10x3/uL (130-400); RBC 2.81 10x6/uL (4.00-5.40); RDW 15.3 % (11.5-14.5); WBC 11.8 10x3/uL (4.8-10.8)
[2017-07-08 05:26] LABS: ANION GAP 10.1 mmol/L (8-16); CALCIUM 7.9 mg/dL (8.5-10.1); CREATININE - SERUM 1.8 mg/dL (0.6-1.3); MAGNESIUM - SERUM 1.4 mg/dL (1.8-2.4); PHOSPHOROUS 2.3 mg/dL (2.5-4.9)
[2017-07-08 05:35] LABS: POTASSIUM - SERUM 3.1 mmol/L (3.5-5.1)
--- NOTE | 2017-07-08 06:26 | NUR ---
RESTING QUIETLY RESPIRATIONS WITH EASE AND UNLABORED.
[2017-07-08 08:14] VITALS: BP 147/95
--- NOTE | 2017-07-08 09:25 | NUR ---
Ordered Vancomycin trough for 07-09 at 1230.
--- NOTE | 2017-07-08 11:03 | NUR ---
NUTRITION F/U CHART REVIEWED. PT REMAINS IN ISOLATION. DIET ADVANCED TO REG SOFT. WILL CONTINUE TO PROVIDE DIET, MONITOR PT PROGRESS. RD FOLLOWING
--- NOTE | 2017-07-08 13:02 | NUR ---
PT AMBULATED AROUND NURSES STATION WITH WALKER. GAIT STEADY. NO COMPLAINTS AT PRESENT. SITTING UP IN CHAIR FOR LUNCH
[2017-07-08 13:19] VITALS: BP 146/88
[2017-07-08 15:43] VITALS: BP 132/78
[2017-07-08 20:00] VITALS: BP 144/92
--- NOTE | 2017-07-08 21:49 | NUR ---
paused the flagyl, flushed the line with a saline flush before inititing pushing the hydralazine. will flush with saline flush when finished pushing hydralazine and then restart flagyl. patient is awake, alert and oriented x's 4. enteric isolation precautions maintained. son at the bedside.
--- NOTE | 2017-07-08 22:38 | NUR ---
REC'D LYING IN BED. ALERT AND ORIENTED X4. REPORTED PAIN 6/10. WILL ADMIN MEDS PRESCRIBED. NO DISTRESS NOTED. CHANGED DRESSING TO ABDOMEN LEFT SIDE AND REMOVED RIGHT SIDE DRESSING AND NOW IS OPEN TO AIR. FAMILY IS AT BEDSIDE. INSTRUCTED TO CALL IF NEEDED ANYTHING, VERBALIZED UNDERSTANDING, BED LOW, LOCKED, CALL LIGHT IN REACH. WILL CONT TO MONITOR.
[2017-07-09 00:48] VITALS: BP 144/84
[2017-07-09 04:00] VITALS: BP 144/88
[2017-07-09 05:29] LABS: BASOPHILS 0.2 % (0-2); EOSINOPHILS 0.8 % (0-7); HEMOGLOBIN 8.2 g/dL (12-16); IMMATURE GRANULOCYTES 0.3 % (0-5); LYMPHOCYTES 8.9 % (15-50); MCH 29.7 pg (26.0-34.0); MCHC 32.8 g/dL (31.0-37.0); MCV 90.6 fL (80.0-100.0); MEAN PLATELET VOLUME 11.4 fL (7.4-10.4); MONOCYTES 9.2 % (2-11); NEUTROPHILS 80.6 % (40-80); PLATELET COUNT 315 10x3/uL (130-400); RBC 2.76 10x6/uL (4.00-5.40); RDW 15.4 % (11.5-14.5); WBC 10.9 10x3/uL (4.8-10.8)
[2017-07-09 05:50] LABS: ANION GAP 11.3 mmol/L (8-16); CARBON DIOXIDE 22.4 mmol/L (21.0-32.0); CREATININE - SERUM 1.5 mg/dL (0.6-1.3); MAGNESIUM - SERUM 1.4 mg/dL (1.8-2.4); PHOSPHOROUS 2.8 mg/dL (2.5-4.9); POTASSIUM - SERUM 3.7 mmol/L (3.5-5.1)
--- NOTE | 2017-07-09 07:37 | NUR ---
PT SEEN. NO COMPLAINTS AT THIS TIME. LYING IN BED ON LEFT SIDE-BUTTOCK STILL EXCORIATED. MIDLINE INCISION WITH MARGARETH INTACT-NO DRAINAGE NOTED. STATES HAD A DECENT NIGHT. CALL LIGHT IN REACH. FAMILY AT BEDSIDE.
[2017-07-09 08:03] VITALS: BP 135/89
--- NOTE | 2017-07-09 09:02 | NUR ---
ORDER AND FACESHEET SENT TO VALENTINE AT [facility] FOR A WALKER AND SHOWER CHAIR
[2017-07-09 12:28] VITALS: BP 140/68
--- NOTE | 2017-07-09 13:05 | NUR ---
REFERRAL MADE TO [facility] AND PT, GONZALES SIGNED. THEY WILL SEE PATIENT ON WEDNESDAY. SON AT BEDSIDE WAITING ON DME TO CALL BACK FOR WALKER AND BSC CM TO FOLLOW AND ASSIST
[2017-07-09 15:48] VITALS: BP 134/77
[2017-07-09] MEDS ORDERED: FLAGYL500 MG PO (18:56)
[2017-07-09] MEDS ORDERED: HYDROCODON-ACE1 EAC7 PO (18:57)
[2017-07-09] MEDS ORDERED: ZOFRAN ODT4 MG/UDTAB PO (18:58)
--- NOTE | 2017-07-09 21:09 | NUR ---
DISCHARGED HOME. REMOVED STAPELS, TOLERATED WELL. REMOVED MIDLINE CATH TIP INTACT. APPLIED PRESSURE FOR 5 MINS. READ DISCHARGE INSTRUCTIONS, FOLLOW UP APPT IN 2-3 WEEKS, UNDERSTOOD PERSCRIPTIONS AND HOW TO TAKE AND SIGNS AND SYPTOMS TO LOOK FOR, VERBALIZED UNDERSTANDING. LEFT VIA WHEELCHAIR, WAS PUSHED DOWN BY FIDELIA CABRERA.
--- NOTE | 2017-07-09 23:44 | NUR ---
PATIENT HAS BEEN DISCHARGED FROM THE HOSPITAL. HER DAUGHTER CALLED FOR HER AND SAID THE PATIENT IS UNABE TO PICK HER UP PERSCRIPTION FOR ZOFRAN BECAUSE OF THE COST. SPOKE WITH . CALLED IN PHENERGAN 25MG PO Q4HP FOR N/V, CALLED INTO [facility].
--- NOTE | 2017-07-11 18:06 | NUR ---
CM RECEIVED TELEPHONE CALL FROM SHAMIKA , NURSE FROM MED/ SURG. SHE HAD RECEIVED A TELEPHONE CALL FROM MARIA D, THE CAREGIVER, FOR [facility] MELTON. THEY WERE EXPECTING A HOME HEALTH NURSE TODAY. NO ONE HAD ARRIVED YET. JORGE REVIEWED THE D/C NOTE. CALLED [facility]. SPOKE WITH PRIYA. SHE DOES NOT HAVE THE PATIENT ON HER LIST . SHE WILL FOLLOW UP AND CONTACT THE PATIENT. TC X2 TO MARIA D, THE CAREGIVE, AT [phone]. [facility]. ADVISED PRIYA FROM [facility] AT [phone] WOULD CALL TO FOLLOW.
--- NOTE | 2017-07-15 13:27 | DS ---
PATIENT:ALLEN MELTON :74 MEDICAL RECORD: [id number] DISCHARGE SUMMARY ADMISSION DATE: 06/09/17 DISCHARGE DATE: 07/09/17 PRINCIPAL DIAGNOSES: 1. Volvulus of the sigmoid colon. 2. Postoperative small-bowel obstruction with perforation. 3. Clostridium difficile colitis. 4. Sepsis. 5. Septic shock. 6. Acute renal failure. 7. Acute respiratory failure. 8. Acute blood loss anemia requiring transfusions. PROCEDURE: 1. Colonoscopic decompression via sigmoidoscopy with a transanal chest tube. 2. Exploratory laparotomy with sigmoid colectomy. 3. Exploratory laparotomy with adhesiolysis and repair of a bowel perforation. HOSPITAL COURSE: The patient was admitted to the Emergency Room. She underwent attempted torsion of the sigmoid volvulus in the radiology department with a dye enema. This was not successful. The patient then underwent detorsion of the volvulus via a sigmoidoscopic placed transanal chest tube. The patient was then bowel prepped. After several days, she was conveyed to the operating room, underwent exploratory laparotomy with sigmoid colectomy. Initially, she did well after this and had a return of bowel function and then developed a small-bowel obstruction. A small bowel obstruction did not resolve with conservative measures. She then underwent exploratory laparotomy with adhesiolysis and the obstructed small bowel had perforated. The bowel was decompressed during the operation and the perforation was repaired. Postoperatively, she has been a bit of time on mechanical ventilation. She became quite ill. She was extubated. Bowel function returned. Her diet was advanced. She continued to have some fevers. She was found to have C. diff colitis. She is now being dismissed home on Flagyl for 7 days due to C. diff colitis as well as Zofran and Healy. I will see her in the office in 2-3 weeks. We removed the Trialysis catheter. We will have the PICC catheter removed prior to dismissal and the tenisha were removed as well. TRANSINT:[id number] Voice Confirmation ID: [id number] DOCUMENT ID: [id number] HERNAN TRAMMELL MD at 1327 CC: [id number] DICTATION DATE: 07/09/171899 DISTANCE EDUCATION COORDINATOR: 07/10/17 0835 DIS IN 07/09/17 [facility] [address] [place] [address]
== END 2017-07-09 20:30 | disposition home health service (06) | DRG 329 ==
LOC: D.ER 16:30 → D.ICU 20:14 → D.MS 20:14 → D.ICU 06-22 01:33 → D.MS 06-26 12:28
PROVIDERS: Internal Medicine; Physician Assistant Medical; Student in an Organized Health Care Education/Training Program; Surgery; ADMIT Surgery
PROC: 0D7N8ZZ Dilation of Sigmoid Colon, Via Natural or Artificial Opening Endoscopic (ICD-10-PCS; principal; 2017-06-09)
PROC: 0DTJ0ZZ Resection of Appendix, Open Approach (ICD-10-PCS; 2017-06-14)
PROC: 0DTN0ZZ Resection of Sigmoid Colon, Open Approach (ICD-10-PCS; 2017-06-14 14:15)
PROC: 0BH17EZ Insertion of Endotracheal Airway into Trachea, Via Natural or Artificial Opening (ICD-10-PCS; 2017-06-22)
PROC: 5A1945Z Respiratory Ventilation, 24-96 Consecutive Hours (ICD-10-PCS; 2017-06-22)
DX: K56.2 Volvulus (principal); K65.9 Peritonitis, unspecified; A41.9 Sepsis, unspecified organism; J96.00 Acute respiratory failure, unspecified whether with hypoxia or hypercapnia; R65.21 Severe sepsis with septic shock; K63.1 Perforation of intestine (nontraumatic); E87.0 Hyperosmolality and hypernatremia; D62 Acute posthemorrhagic anemia; N17.9 Acute kidney failure, unspecified; A04.72 Enterocolitis due to Clostridium difficile, not specified as recurrent; G44.40 Drug-induced headache, not elsewhere classified, not intractable; T40.2X5A Adverse effect of other opioids, initial encounter; R00.0 Tachycardia, unspecified; E16.2 Hypoglycemia, unspecified; K72.90 Hepatic failure, unspecified without coma; I10 Essential (primary) hypertension; K91.31 Postprocedural partial intestinal obstruction

== ENCOUNTER 2017-07-19 18:48 | Observation (INO) | payer MEDICAID ==
[~2017-07-19] VITALS: Ht 170.2 cm; Wt 82.6 kg
--- NOTE | ~2017-07-19 | CN ---
PATIENT NAME:ALLEN MELTON MEDICAL RECORD: [id number] : 74 LOCATION:D. D.2127 ADMIT DATE: 07/19/17 ACCOUNT: [id number] CONSULTING PHYSICIAN: EMANUEL JONES MD REFERRING PHYSICIAN: HAILEY RAMOS MD DATE OF CONSULTATION: 07/20/2017 HISTORY OF PRESENT ILLNESS: A 47-year-old female with a history of recent volvulus repair or reduction. Just recently started having a normal eating habits, passing gas, etc., began having probably high-output angina, has been anemic with hemoglobin in 8.9 range. Currently, posttransfusion feels much improved. We are asked to see her concerning her cardiovascular status, also noted to be hypokalemic on admit. PAST MEDICAL HISTORY: Includes: 1. History of hypertension. 2. Recent volvulus repair. ALLERGIES: IODINE. HOME MEDICATIONS: To include tramadol 50 q.4 p.r.n., Zofran 4 ____ daily, and lisinopril 20 every day. SOCIAL HISTORY: Nonsmoker, nondrinker, typically usually takes care of her ADLs. REVIEW OF SYSTEMS: The patient reports easy bruising but reports no swollen glands. The patient reports no fever, no night sweats, no significant weight gain, no significant weight loss. No significant exercise tolerance. The patient reports no dry eyes, no irritation, no vision change. Patient reports no difficulty hearing and no ear pain. Patient reports no frequent nose bleeds or nose and sinus problems. Patient reports on arm pain on exertion. No shortness of breath while lying down. No history of heart murmur. Patient reports no cough, no wheezing or coughing up blood. Patient reports no abdominal pain, no vomiting. Normal appetite. No diarrhea and not vomiting blood. No nausea and no constipation. Patient reports no incontinence. No difficulty urinating. No hematuria. No increased frequency. Patient reports no muscle aches. No weakness, no arthralgias, no back pain. No swelling of the extremities. Patient reports no abnormal mole, no jaundice, no rashes. Reports no loss of consciousness. No weakness and no numbness. No seizures, dizziness, or headaches. The patient reports no depression, no sleep disturbance, feeling safe in a relationship and no alcohol abuse. Patient reports on fatigue. Reports no runny nose or sinus pressure. No itching, no hives, and no frequent sneezing. PHYSICAL EXAMINATION: GENERAL: Pleasant female in no acute distress. VITAL SIGNS: 143/93, pulse 77 and regular. HEENT: Normocephalic, atraumatic. NECK: No JVD or bruit. HEART: Regular. LUNGS: Good air excursion. ABDOMEN: Soft, nontender. EXTREMITIES: Pulse is well preserved, 2+. There is no edema. CONSULT REPORT [id number] ALLEN MELTON DIAGNOSTIC DATA: ECG is normal. IMPRESSION: High-output angina, symptomatology has resolved posttransfusion. Okay to discharge from my standpoint. TRANSINT:[id number] Voice Confirmation ID: [id number] DOCUMENT ID: [id number] EMANUEL JONES MD at 1318 CC: [id number] DICTATION DATE: 07/20/17 0841 RESIDENTIAL AIDE: 07/20/17 0909 DIS IN 07/20/17 [id number] [place] [address]
[~2017-07-19 18:48] MED LIST changes: +FLAGYL500 MG PO; +HYDROCODON-ACE1 EAC7 PO; +ZOFRAN ODT4 MG/UDTAB PO
[2017-07-19 19:29] LABS: BASOPHILS 0.3 % (0-2); EOSINOPHILS 1.7 % (0-7); HEMATOCRIT 25.8 % (36.0-48.0); HEMOGLOBIN 8.6 g/dL (12-16); IMMATURE GRANULOCYTES 0.5 % (0-5); LYMPHOCYTES 31.1 % (15-50); MCH 29.8 pg (26.0-34.0); MCHC 33.3 g/dL (31.0-37.0); MCV 89.3 fL (80.0-100.0); MEAN PLATELET VOLUME 10.1 fL (7.4-10.4); MONOCYTES 10.8 % (2-11); NEUTROPHILS 55.6 % (40-80); PLATELET COUNT 311 10x3/uL (130-400); RBC 2.89 10x6/uL (4.00-5.40); RDW 14.9 % (11.5-14.5); WBC 6.6 10x3/uL (4.8-10.8)
[2017-07-19 20:00] LABS: ALBUMIN 2.7 g/dL (3.4-5.0); ALKALINE PHOSPHATASE 77 U/L (46-116); ALT (SGPT) 30 U/L (10-68); BILIRUBIN - TOTAL 0.75 mg/dL (0.2-1.3); CALC OSMOLALITY 269 mosm/kg (275-300); CALCIUM 8.2 mg/dL (8.5-10.1); CARBON DIOXIDE 28.1 mmol/L (21.0-32.0); CHLORIDE - SERUM 99 mmol/L (98-107); CKMB 0.3 U/L (0.0-3.6); CREATINE KINASE 38 UL (21-215); CREATININE - SERUM 0.9 mg/dL (0.6-1.3); GLUCOSE 108 mg/dL (74-106); PROTEIN - SERUM 7.7 g/dL (6.4-8.2); SODIUM 136 mmol/L (136-145); UREA NITROGEN 4 mg/dL (7-18); eGFR NON AFRICAN AMERICAN 72 mL/min (90-120)
[2017-07-19 20:07] LABS: POTASSIUM - SERUM 2.6 mmol/L (3.5-5.1); TROPONIN-I < 0.017 ng/mL (0.000-0.060)
[2017-07-19 21:45] VITALS: BP 157/100
[2017-07-19] MEDS ORDERED: ULTRAM50 MG PO (22:23)
[2017-07-20 00:30] VITALS: BP 124/83
[2017-07-20 01:09] VITALS: BP 157/100; BMI 29.6
[2017-07-20 01:09] LABS: CKMB 0.2 U/L (0.0-3.6); CREATINE KINASE 30 UL (21-215)
[2017-07-20 01:11] LABS: TROPONIN-I < 0.017 ng/mL (0.000-0.060)
[2017-07-20 04:30] VITALS: BP 142/93
[2017-07-20 08:05] LABS: BASOPHILS 0.3 % (0-2); EOSINOPHILS 1.2 % (0-7); IMMATURE GRANULOCYTES 0.4 % (0-5); LYMPHOCYTES 28.9 % (15-50); MCH 29.1 pg (26.0-34.0); MCHC 33.3 g/dL (31.0-37.0); MEAN PLATELET VOLUME 10.8 fL (7.4-10.4); MONOCYTES 8.5 % (2-11); NEUTROPHILS 60.7 % (40-80); PLATELET COUNT 317 10x3/uL (130-400); RDW 16.8 % (11.5-14.5); WBC 7.3 10x3/uL (4.8-10.8)
[2017-07-20 08:13] LABS: HEMATOCRIT 31.2 % (36.0-48.0); HEMOGLOBIN 10.4 g/dL (12-16); MCV 87.2 fL (80.0-100.0); RBC 3.58 10x6/uL (4.00-5.40)
[2017-07-20 08:44] LABS: CALC OSMOLALITY 274 mosm/kg (275-300); CALCIUM 8.5 mg/dL (8.5-10.1); CARBON DIOXIDE 26.8 mmol/L (21.0-32.0); CHLORIDE - SERUM 104 mmol/L (98-107); CKMB 0.2 U/L (0.0-3.6); CREATINE KINASE 35 UL (21-215); CREATININE - SERUM 0.9 mg/dL (0.6-1.3); GLUCOSE 102 mg/dL (74-106); POTASSIUM - SERUM 3.3 mmol/L (3.5-5.1); SODIUM 139 mmol/L (136-145); TROPONIN-I < 0.017 ng/mL (0.000-0.060); UREA NITROGEN 5 mg/dL (7-18); eGFR NON AFRICAN AMERICAN 72 mL/min (90-120)
[2017-07-20 11:43] VITALS: BP 162/99
[2017-07-20 13:51] VITALS: Ht 170.2 cm; Wt 82.6 kg
[2017-07-20] MEDS ORDERED: PROTONIX40 MG PO (19:48)
== END 2017-07-20 20:58 | disposition home or self-care (01) ==
LOC: D.ER 18:48 → D.M2 20:44 → OBSVTIME 20:44 → D.M2 20:44
PROVIDERS: Emergency Medicine; Family Medicine
DX: I20.9 Angina pectoris, unspecified (principal); I10 Essential (primary) hypertension; D62 Acute posthemorrhagic anemia

== ENCOUNTER → 2017-07-21 14:53 | Outpatient (CLI) | payer MEDICAID ==
[2017-07-20 13:51] VITALS: BMI 28.5
[~2017-07-21 14:53] MED LIST changes: +PROTONIX40 MG PO; +ULTRAM50 MG PO
[2017-07-21 15:36] LABS: BASOPHILS 0.3 % (0-2); EOSINOPHILS 0.9 % (0-7); HEMATOCRIT 31.4 % (36.0-48.0); HEMOGLOBIN 10.6 g/dL (12-16); IMMATURE GRANULOCYTES 0.4 % (0-5); LYMPHOCYTES 30.5 % (15-50); MCHC 33.8 g/dL (31.0-37.0); MEAN PLATELET VOLUME 11.1 fL (7.4-10.4); MONOCYTES 9.7 % (2-11); NEUTROPHILS 58.2 % (40-80); PLATELET COUNT 279 10x3/uL (130-400); RBC 3.65 10x6/uL (4.00-5.40); RDW 16.6 % (11.5-14.5); WBC 7.7 10x3/uL (4.8-10.8)
[2017-07-21 15:43] LABS: INR 1.05 (0.85-1.17); PROTIME 13.3 SECONDS (11.6-15.0)
[2017-07-21 15:50] LABS: ALBUMIN 2.8 g/dL (3.4-5.0); BILIRUBIN - TOTAL 0.66 mg/dL (0.2-1.3); CALCIUM 8.7 mg/dL (8.5-10.1); PROTEIN - SERUM 7.7 g/dL (6.4-8.2)
[2017-07-21 16:32] LABS: ANION GAP 10.8 mmol/L (8-16); POTASSIUM - SERUM 2.8 mmol/L (3.5-5.1)
== END | disposition home or self-care (01) ==
LOC: D.LABREF 14:53
PROVIDERS: Surgery
DX: K63.9 Disease of intestine, unspecified (principal); I10 Essential (primary) hypertension

== ENCOUNTER 2017-07-23 12:19 | Emergency (ER) | payer MEDICAID ==
[2017-07-20 13:51] VITALS: BMI 28.5
[2017-07-23 15:08] LABS: BASOPHILS 0.1 % (0-2); EOSINOPHILS 0.9 % (0-7); HEMATOCRIT 34.2 % (36.0-48.0); HEMOGLOBIN 11.5 g/dL (12-16); IMMATURE GRANULOCYTES 0.5 % (0-5); LYMPHOCYTES 24.6 % (15-50); MCH 29.3 pg (26.0-34.0); MCHC 33.6 g/dL (31.0-37.0); MCV 87.2 fL (80.0-100.0); MEAN PLATELET VOLUME 10.6 fL (7.4-10.4); MONOCYTES 10.4 % (2-11); NEUTROPHILS 63.5 % (40-80); PLATELET COUNT 277 10x3/uL (130-400); RBC 3.92 10x6/uL (4.00-5.40); RDW 16.4 % (11.5-14.5); WBC 8.9 10x3/uL (4.8-10.8)
[2017-07-23 15:20] LABS: ANION GAP 12.8 mmol/L (8-16); BILIRUBIN - TOTAL 0.85 mg/dL (0.2-1.3); CARBON DIOXIDE 26.2 mmol/L (21.0-32.0); CREATININE - SERUM 0.9 mg/dL (0.6-1.3); PROTEIN - SERUM 8.2 g/dL (6.4-8.2)
== END 2017-07-23 16:20 | disposition home or self-care (01) ==
LOC: D.ER 12:19
PROVIDERS: Nurse Practitioner Family
DX: I10 Essential (primary) hypertension (principal)

== ENCOUNTER 2017-07-29 02:33 | Emergency (ER) | payer MEDICAID ==
[2017-07-20 13:51] VITALS: BMI 28.5
== END 2017-07-29 05:07 | disposition home or self-care (01) ==
LOC: D.ER 02:33
DX: K59.00 Constipation, unspecified (principal); R10.9 Unspecified abdominal pain; I10 Essential (primary) hypertension

== ENCOUNTER → 2017-08-16 16:35 | Outpatient (CLI) | payer MEDICAID ==
[2017-07-20 13:51] VITALS: BMI 28.5
== END | disposition home or self-care (01) ==
LOC: D.LABREF 16:35
DX: L02.211 Cutaneous abscess of abdominal wall (principal)

== ENCOUNTER 2017-10-23 16:38 | Emergency (ER) | payer MEDICAID ==
[2017-07-20 13:51] VITALS: BMI 28.5
[2017-10-23 17:18] LABS: BASOPHILS 0.3 % (0-2); EOSINOPHILS 3.4 % (0-7); HEMOGLOBIN 11.5 g/dL (12-16); LYMPHOCYTES 54.5 % (15-50); MCH 30.1 pg (26.0-34.0); MCHC 33.8 g/dL (31.0-37.0); MEAN PLATELET VOLUME 10.7 fL (7.4-10.4); MONOCYTES 9.2 % (2-11); NEUTROPHILS 32.6 % (40-80); RBC 3.82 10x6/uL (4.00-5.40); RDW 13.1 % (11.5-14.5); WBC 3.8 10x3/uL (4.8-10.8)
[2017-10-23 17:20] LABS: PLATELET COUNT 219 10x3/uL (130-400)
[2017-10-23 17:48] LABS: APPEARANCE CLEAR (CLEAR); BILIRUBIN NEGATIVE (NEGATIVE); COLOR YELLOW (YELLOW); GLUCOSE NEGATIVE (NEGATIVE); KETONE NEGATIVE (NEGATIVE); NITRITE NEGATIVE (NEGATIVE); PH 5.5 (5.0-6.0); PROTEIN NEGATIVE (NEGATIVE); UROBILINOGEN NORMAL (NORMAL)
[2017-10-23 18:11] LABS: ALBUMIN 3.5 g/dL (3.4-5.0); ALKALINE PHOSPHATASE 60 U/L (46-116); ALT (SGPT) 38 U/L (10-68); BILIRUBIN - TOTAL 0.22 mg/dL (0.2-1.3); C-REACTIVE PROTEIN < 0.2 mg/dL (0.0-0.9); CALC OSMOLALITY 277 mosm/kg (275-300); CALCIUM 9.1 mg/dL (8.5-10.1); CARBON DIOXIDE 30.4 mmol/L (21.0-32.0); CHLORIDE - SERUM 103 mmol/L (98-107); CREATININE - SERUM 1.2 mg/dL (0.6-1.3); GLUCOSE 94 mg/dL (74-106); MAGNESIUM - SERUM 1.8 mg/dL (1.8-2.4); POTASSIUM - SERUM 3.9 mmol/L (3.5-5.1); PROTEIN - SERUM 7.8 g/dL (6.4-8.2); SODIUM 139 mmol/L (136-145); UREA NITROGEN 12 mg/dL (7-18); URIC ACID 3.8 mg/dL (2.6-7.2); eGFR NON AFRICAN AMERICAN 51 mL/min (90-120)
[2017-10-23 18:52] LABS: ERYTHROCYTE SEDIMENTATION RATE 20 mm/hr (0-20)
== END 2017-10-23 18:30 | disposition home or self-care (01) ==
LOC: D.ER 16:38
PROVIDERS: Family Medicine
DX: M79.672 Pain in left foot (principal); M79.671 Pain in right foot; I10 Essential (primary) hypertension

== ENCOUNTER 2018-01-19 21:21 | Emergency (ER) | payer MEDICAID ==
[~2018-01-19] VITALS: Ht 170.2 cm; Wt 84.1 kg
[2018-01-19 21:52] VITALS: Ht 170.2 cm; Wt 84.1 kg
[2018-01-19 22:23] LABS: APPEARANCE HAZY (CLEAR); BILIRUBIN NEGATIVE (NEGATIVE); COLOR YELLOW (YELLOW); GLUCOSE NEGATIVE (NEGATIVE); KETONE NEGATIVE (NEGATIVE); NITRITE POSITIVE (NEGATIVE); PROTEIN NEGATIVE (NEGATIVE); SPECIFIC GRAVITY 1.015 (1.005-1.020); UROBILINOGEN NORMAL (NORMAL)
[2018-01-19 22:24] LABS: BACTERIA MODERATE /hpf (NONE SEEN); RED CELLS - URINE 0-5 /hpf (0-5)
[2018-01-19 22:25] LABS: HCG URINE NEGATIVE (NEGATIVE)
[2018-01-19 23:00] LABS: BASOPHILS 0.2 % (0-2); EOSINOPHILS 1.8 % (0-7); HEMATOCRIT 35.9 % (36.0-48.0); HEMOGLOBIN 11.9 g/dL (12-16); IMMATURE GRANULOCYTES 0.4 % (0-5); LYMPHOCYTES 42.4 % (15-50); MCHC 33.1 g/dL (31.0-37.0); MCV 90.4 fL (80.0-100.0); MEAN PLATELET VOLUME 11.3 fL (7.4-10.4); MONOCYTES 10.6 % (2-11); NEUTROPHILS 44.6 % (40-80); PLATELET COUNT 192 10x3/uL (130-400); RBC 3.97 10x6/uL (4.00-5.40); RDW 13.3 % (11.5-14.5)
[2018-01-19 23:17] LABS: ALBUMIN 3.4 g/dL (3.4-5.0); ANION GAP 9.9 mmol/L (8-16); BILIRUBIN - TOTAL 0.24 mg/dL (0.2-1.3); CALCIUM 9.1 mg/dL (8.5-10.1); CARBON DIOXIDE 27.1 mmol/L (21.0-32.0); CREATININE - SERUM 1.1 mg/dL (0.6-1.3); PROTEIN - SERUM 7.4 g/dL (6.4-8.2)
[2018-01-19] MEDS ORDERED: PHENAZOPYRIDIN200 MG PO (23:30)
[2018-01-19] MEDS ORDERED: KEFLEX500 MG PO (23:30)
[2018-01-19] MEDS ORDERED: MACROBID100 MG PO (23:30)
[2018-01-19 23:50] VITALS: BP 165/95
== END 2018-01-19 23:50 | disposition home or self-care (01) ==
LOC: D.ER 21:21
PROVIDERS: Family Medicine
DX: N39.0 Urinary tract infection, site not specified (principal); R30.0 Dysuria; I10 Essential (primary) hypertension

== ENCOUNTER 2018-05-04 09:09 | Emergency (ER) | payer MEDICAID ==
[~2018-05-04] VITALS: Ht 170.2 cm; Wt 94.1 kg
[~2018-05-04 09:09] MED LIST changes: +KEFLEX500 MG PO; +MACROBID100 MG PO; +PHENAZOPYRIDIN200 MG PO
[2018-05-04 09:21] VITALS: BP 137/96; Ht 170.2 cm; Wt 94.1 kg
[2018-05-04 10:10] LABS: APPEARANCE CLOUDY (CLEAR); BACTERIA MODERATE /hpf (NONE SEEN); BILIRUBIN NEGATIVE (NEGATIVE); COLOR YELLOW (YELLOW); EPITHELIAL CELLS OCC /hpf (0-5); GLUCOSE NEGATIVE (NEGATIVE); KETONE NEGATIVE (NEGATIVE); MUCUS <1+ /lpf (NONE SEEN); NITRITE NEGATIVE (NEGATIVE); PROTEIN 1+ mg/dL (NEGATIVE); SPECIFIC GRAVITY 1.015 (1.005-1.020); UROBILINOGEN NORMAL (NORMAL); WHITE CELLS - URINE >50 /hpf (0-5)
[2018-05-04] MEDS ORDERED: KEFLEX500 MG PO (10:22)
[2018-05-04] MEDS ORDERED: MACROBID100 MG PO (10:22)
== END 2018-05-04 10:53 | disposition home or self-care (01) ==
LOC: D.ER 09:09
PROVIDERS: Family Medicine
DX: N39.0 Urinary tract infection, site not specified (principal); R30.0 Dysuria; R35.0 Frequency of micturition; I10 Essential (primary) hypertension

== ENCOUNTER 2018-05-25 22:18 | Emergency (ER) | payer MEDICAID ==
[~2018-05-25] VITALS: Ht 170.2 cm; Wt 94.1 kg
[2018-05-25 22:21] VITALS: Ht 170.2 cm; Wt 94.1 kg
[2018-05-25] MEDS ORDERED: ZOFRAN4 MG PO (22:44)
[2018-05-25 23:05] VITALS: BP 146/99
== END 2018-05-25 23:05 | disposition home or self-care (01) ==
LOC: D.ER 22:18
DX: R11.2 Nausea with vomiting, unspecified (principal); I10 Essential (primary) hypertension

== ENCOUNTER 2018-08-05 18:46 | Emergency (ER) | payer MEDICAID ==
[~2018-08-05] VITALS: Ht 170.2 cm; Wt 95.9 kg
[~2018-08-05 18:46] MED LIST changes: +ZOFRAN4 MG PO
[2018-08-05 19:16] VITALS: Ht 170.2 cm; Wt 95.9 kg
[2018-08-05 23:04] LABS: APPEARANCE HAZY (CLEAR); BILIRUBIN NEGATIVE (NEGATIVE); COLOR YELLOW (YELLOW); GLUCOSE NEGATIVE (NEGATIVE); KETONE NEGATIVE (NEGATIVE); NITRITE NEGATIVE (NEGATIVE); PROTEIN NEGATIVE (NEGATIVE); SPECIFIC GRAVITY 1.015 (1.005-1.020); UROBILINOGEN NORMAL (NORMAL)
[2018-08-05 23:05] LABS: BACTERIA FEW /hpf (NONE SEEN); EPITHELIAL CELLS RARE /hpf (0-5); RED CELLS - URINE 0-5 /hpf (0-5)
[2018-08-05] MEDS ORDERED: ULTRAM50 MG PO (23:25)
[2018-08-05] MEDS ORDERED: BACTRIM DS1 TAB PO (23:25)
[2018-08-05 23:59] VITALS: BP 178/104
== END 2018-08-05 23:29 | disposition home or self-care (01) ==
LOC: D.ER 18:46
PROVIDERS: Family Medicine
DX: N39.0 Urinary tract infection, site not specified (principal); I10 Essential (primary) hypertension

== ENCOUNTER 2018-09-06 15:27 | Emergency (ER) | payer MEDICAID ==
[~2018-09-06] VITALS: Ht 170.2 cm; Wt 95.5 kg
[~2018-09-06 15:27] MED LIST changes: +BACTRIM DS1 TAB PO
[2018-09-06 15:43] VITALS: BP 131/80; Ht 170.2 cm; Wt 95.5 kg
== END 2018-09-06 16:48 | disposition left against medical advice (07) ==
LOC: D.ER 15:27
DX: L02.31 Cutaneous abscess of buttock (principal)

== ENCOUNTER 2018-11-28 03:06 | Emergency (ER) | payer MEDICAID ==
[~2018-11-28] VITALS: Ht 170.2 cm; Wt 89.8 kg
[2018-11-28 03:12] VITALS: Ht 170.2 cm; Wt 89.8 kg
[2018-11-28 03:56] LABS: BASOPHILS 0.2 % (0-2); EOSINOPHILS 1.5 % (0-7); HEMATOCRIT 34.3 % (36.0-48.0); HEMOGLOBIN 11.5 g/dL (12-16); LYMPHOCYTES 44.5 % (15-50); MCH 29.9 pg (26.0-34.0); MCHC 33.5 g/dL (31.0-37.0); MCV 89.1 fL (80.0-100.0); MEAN PLATELET VOLUME 10.5 fL (7.4-10.4); MONOCYTES 7.3 % (2-11); NEUTROPHILS 46.5 % (40-80); PLATELET COUNT 214 10x3/uL (130-400); RBC 3.85 10x6/uL (4.00-5.40); RDW 13.1 % (11.5-14.5); WBC 5.4 10x3/uL (4.8-10.8)
[2018-11-28 04:01] LABS: APPEARANCE CLEAR (CLEAR); BILIRUBIN NEGATIVE (NEGATIVE); COLOR YELLOW (YELLOW); GLUCOSE NEGATIVE (NEGATIVE); KETONE NEGATIVE (NEGATIVE); NITRITE NEGATIVE (NEGATIVE); PROTEIN NEGATIVE (NEGATIVE); SPECIFIC GRAVITY 1.015 (1.005-1.020); UROBILINOGEN NORMAL (NORMAL)
[2018-11-28 04:12] LABS: ALBUMIN 3.4 g/dL (3.4-5.0); ALKALINE PHOSPHATASE 71 U/L (46-116); ALT (SGPT) 25 U/L (10-68); BILIRUBIN - TOTAL 0.13 mg/dL (0.2-1.3); CALC OSMOLALITY 277 mosm/kg (275-300); CALCIUM 9.1 mg/dL (8.5-10.1); CARBON DIOXIDE 30.5 mmol/L (21.0-32.0); CHLORIDE - SERUM 102 mmol/L (98-107); CREATININE - SERUM 0.9 mg/dL (0.6-1.3); GLUCOSE 108 mg/dL (74-106); POTASSIUM - SERUM 3.6 mmol/L (3.5-5.1); PROTEIN - SERUM 7.3 g/dL (6.4-8.2); SODIUM 138 mmol/L (136-145); UREA NITROGEN 14 mg/dL (7-18); eGFR NON AFRICAN AMERICAN 71 mL/min (90-120)
[2018-11-28 04:16] LABS: AMYLASE - SERUM 44 U/L (25-115); LIPASE 129 U/L (73-393); TROPONIN-I < 0.017 ng/mL (0.000-0.060)
[2018-11-28 05:26] VITALS: BP 144/78
[2018-11-28] MEDS ORDERED: ULTRAM50 MG PO (06:54)
== END 2018-11-28 07:20 | disposition home or self-care (01) ==
LOC: D.ER 03:06
PROVIDERS: Family Medicine
DX: N83.202 Unspecified ovarian cyst, left side (principal); R10.32 Left lower quadrant pain; K42.9 Umbilical hernia without obstruction or gangrene

== ENCOUNTER 2019-04-07 16:01 | Emergency (ER) | payer MEDICAID ==
[~2019-04-07] VITALS: Ht 170.2 cm; Wt 90.0 kg
[2019-04-07 16:10] VITALS: Ht 170.2 cm; Wt 90.0 kg
[2019-04-07] MEDS ORDERED: ULTRAM50 MG PO (18:05)
[2019-04-07] MEDS ORDERED: CYCLOBENZAPRINE10 MG PO (18:05)
[2019-04-07 19:06] VITALS: BP 133/82
== END 2019-04-07 19:05 | disposition home or self-care (01) ==
LOC: D.ER 16:01
DX: M54.32 Sciatica, left side (principal)

== ENCOUNTER 2019-07-31 19:00 | Emergency (ER) | payer MEDICAID ==
[~2019-07-31] VITALS: Ht 170.2 cm; Wt 107.5 kg
[~2019-07-31 19:00] MED LIST changes: +CYCLOBENZAPRINE10 MG PO
[2019-07-31 19:14] VITALS: Ht 170.2 cm; Wt 107.5 kg
[2019-07-31] MEDS ORDERED: TAMIFLU75 MG PO (21:12)
[2019-07-31] MEDS ORDERED: MUCINEX DM ER1 EAC1 PO (21:12)
[2019-07-31] MEDS ORDERED: ZOFRAN ODT4 MG/UDTAB PO (21:28)
[2019-07-31 22:28] VITALS: BP 150/87
== END 2019-07-31 22:19 | disposition home or self-care (01) ==
LOC: D.ER 19:00
DX: J11.1 Influenza due to unidentified influenza virus with other respiratory manifestations (principal); I10 Essential (primary) hypertension

== ENCOUNTER → 2020-03-29 20:34 | Outpatient (CLI) | payer MEDICAID ==
[2019-09-02 07:22] VITALS: BMI 36.4
[~2020-03-29 20:34] MED LIST changes: +MUCINEX DM ER1 EAC1 PO; +TAMIFLU75 MG PO
== END | disposition home or self-care (01) ==
LOC: D.LABREF 20:34
PROVIDERS: ATTEND Nurse Practitioner
DX: R10.9 Unspecified abdominal pain (principal)

== ENCOUNTER → 2020-04-10 09:33 | Outpatient (CLI) | payer MEDICAID ==
[2019-09-02 07:22] VITALS: BMI 36.4
== END | disposition home or self-care (01) ==
LOC: D.CT 04-02 10:30
PROVIDERS: ATTEND Nurse Practitioner
DX: K43.9 Ventral hernia without obstruction or gangrene (principal)

== ENCOUNTER 2020-04-15 18:46 | Emergency (ER) | payer MEDICAID ==
[~2020-04-15] VITALS: Ht 170.2 cm; Wt 110.0 kg
[2020-04-15 18:56] VITALS: Ht 170.2 cm; Wt 110.0 kg
[2020-04-15 20:00] LABS: BASOPHILS 0.3 % (0-2); EOSINOPHILS 2.1 % (0-7); HEMATOCRIT 36.6 % (36.0-48.0); IMMATURE GRANULOCYTES 0.3 % (0-5); LYMPHOCYTES 36.8 % (15-50); MCH 28.9 pg (26.0-34.0); MCHC 32.8 g/dL (31.0-37.0); MCV 88.2 fL (80.0-100.0); MEAN PLATELET VOLUME 10.5 fL (7.4-10.4); MONOCYTES 6.3 % (2-11); NEUTROPHILS 54.2 % (40-80); RBC 4.15 10x6/uL (4.00-5.40); RDW 13.4 % (11.5-14.5); WBC 6.1 10x3/uL (4.8-10.8)
[2020-04-15 20:10] LABS: PLATELET COUNT 265 10x3/uL (130-400)
[2020-04-15 20:13] LABS: APTT 28.9 SECONDS (22.8-39.4); INR 0.93 (0.85-1.17); PROTIME 12.5 SECONDS (11.6-15.0)
[2020-04-15 20:20] LABS: CALC OSMOLALITY 275 mosm/kg (275-300); CALCIUM 9.5 mg/dL (8.5-10.1); CARBON DIOXIDE 29.4 mmol/L (21.0-32.0); CHLORIDE - SERUM 104 mmol/L (98-107); CREATININE - SERUM 1.3 mg/dL (0.6-1.3); GLUCOSE 106 mg/dL (74-106); POTASSIUM - SERUM 3.3 mmol/L (3.5-5.1); SODIUM 138 mmol/L (136-145); UREA NITROGEN 13 mg/dL (7-18); eGFR NON AFRICAN AMERICAN 46 mL/min (90-120)
[2020-04-15 20:33] LABS: ALBUMIN 3.6 g/dL (3.4-5.0); ALKALINE PHOSPHATASE 70 U/L (30-120); ALT (SGPT) 27 U/L (10-68); BILIRUBIN - TOTAL 0.31 mg/dL (0.2-1.3); CKMB 1.1 U/L (0.0-3.6); CREATINE KINASE 224 UL (21-215); MAGNESIUM - SERUM 1.7 mg/dL (1.8-2.4)
[2020-04-15 20:42] LABS: TROPONIN-I < 0.017 ng/mL (0.000-0.060)
[2020-04-15] MEDS ORDERED: LISINOPRIL40 MG PO (22:04)
[2020-04-15 23:47] VITALS: BP 131/84
== END 2020-04-15 23:46 | disposition home or self-care (01) ==
LOC: D.ER 18:46
PROVIDERS: Emergency Medicine
DX: I10 Essential (primary) hypertension (principal); R51 Headache; R07.9 Chest pain, unspecified